=== PATIENT | female | born 2000 | race Caucasian/White ===

== ENCOUNTER 2024-11-29 18:59 | Outpatient (CLI) | payer BC, SELFPAY ==
[2024-11-29] VITALS (25 sets, daily range): BP systolic 107–117; BP diastolic 59–66; PULSE 95–120; O2SAT 97–100
--- OUTSIDE RECORDS SUMMARY | 2024-11-29 19:11 | XMS_ITS | Referral Summary ---
Author Organization [facility] Address [address] [place] [address] Care Team Providers Care Supervisor Payroll Name Role Phone Unavailable Primary Care Provider Unavailabl e Source Comments [facility],non-owned Affiliates and Associated Physician Practices is amultiple site organization consisting of ambulatory clinics and hospital sitesin [place], [place] and [place]. This disclosure is being madepursuant to the Care Everywhere program and may not contain all information available regarding this patient. Last updated 18.[facility] Encounters Date Type Department Care Team Description 11/18/2024 Telephone [facility] [address] [place] [id number] Georgette Jimenez RN Results (Called patient to let her know her antibody screen was Negative and she does not need further FU with [facility] office. Advised patient to call back if she has any questions. ) 11/13/2024 8:40 AM THERMAL TECHNICIAN - 11/13/2024 11:59 PM THERMAL TECHNICIAN Hospital Encounter [facility] [address] [place] [address] Iker Maher MD ENVIRONMENTAL SERVICES ASSISTANT Discharge Disposition: Home or Self Care 10/16/2024 7:56 AM THERMAL TECHNICIAN - 10/16/2024 11:59 PM THERMAL TECHNICIAN Hospital Encounter [facility] [address] [place] [address] [phone] Colton Rasmussen MD Discharge Disposition: Home or Self Care 10/14/2024 Orders Only [facility] - ENVIRONMENTAL SERVICES ASSISTANT [address] [place] [phone] Isadora Majano MD 09/23/2024 Orders Only [facility] [address] [place] [phone] Georgette Jimenez RN 09/18/2024 8:30 AM THERMAL TECHNICIAN - 09/18/2024 11:59 PM THERMAL TECHNICIAN Hospital Encounter [facility] [address] [place] [address] [phone] Colton Rasmussen MD Discharge Disposition: Home or Self Care 09/18/2024 8:25 AM THERMAL TECHNICIAN - 09/18/2024 8:29 AM THERMAL TECHNICIAN Hospital Encounter [facility] [address] [place] [id number] Colton Rasmussen MD Discharge Disposition: Home or Self Care from Last 3 Months Allergies No known active allergies Medications * Be aware that medications may not be up to date on this document. Alwaysverify current medications with the patient. 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 Encounter for anatomic survey 10/16/2024 Estimated Date of Delivery Comme nts Yes 03/01/2025 Based on last me nstrual period of 05/25/2024 Social History Tobacco Use Types Packs/Day Years Used Date Smoking Tobacco: Never Smokeless Tobacco: Never Tobacco Cessation:Counseling Given: Not Answered Alcohol Use Standard Drinks/Week Comments Not Currently 0 (1 standard drink = 0.6 oz pur e alcohol) Estimated Date of Delivery Comme nts Yes 03/01/2025 Based on last me nstrual period of 05/25/2024 Sex and Gender Information Value Date Recorded Sex Assigned at Female 10/09/2024 11:06 AM THERMAL TECHNICIAN Gender Identity Female 10/09/2024 11:06 AM THERMAL TECHNICIAN Sexual Orientation Not on file Last Filed Vital Signs Vital Sign Reading Time Taken Comments Blood Pressure 108/55 11/13/2024 8:53 AM THERMAL TECHNICIAN Pulse 71 11/13/2024 8:53 AM THERMAL TECHNICIAN Temperature - - Respiratory Rate - - Oxygen Saturation - - Inhaled Oxygen Concentration - - Weight 93.6 kg (206 lb 6.4 oz) 11/13/2024 8:53 A M THERMAL TECHNICIAN Height 160 cm (5' 3 ) 09/18/2024 9:22 AM THERMAL TECHNICIAN Body Mass Index 36.56 09/18/2024 9:22 AM THERMAL TECHNICIAN Plan of Treatment Not on file Procedures Procedure Name Priority Date/Time Associated Diagnosis Comments ANTIBODY SCREEN 11/13/2024 10:31 AM THERMAL TECHNICIAN SONOGRAM - COMPLETE Routine 11/13/2024 9 :20 AM THERMAL TECHNICIAN 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 Encounter for routine ultrasound (HCC) 15 weeks gestation of (HCC) SONOGRAM - COMPLETE Routine 10/16/2024 7 :58 AM THERMAL TECHNICIAN 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 Encounter for routine ultrasound (HCC) 15 weeks gestation of (HCC) ANTIBODY IDENTIFICATION 10/14/2024 8:37 AM THERMAL TECHNICIAN ANTIBODY SCREEN 10/14/2024 8:37 AM THERMAL TECHNICIAN ANTIBODY IDENTIFICATION 09/18/2024 10:58 AM THERMAL TECHNICIAN ANTIBODY SCREEN 09/18/2024 10:58 AM THERMAL TECHNICIAN SONOGRAM - COMPLETE Routine 09/18/2024 8 :49 AM THERMAL TECHNICIAN 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 Antibody Screen NO ANTIBODIES DETECTED [facility] Comment: Historical records indicate the patient's plasma previously contained antibodies to the D antigen. The antibody is not detectable in the current sample. Clinical correlation is suggested. Reference range No antibodies detected This assay is a screening test for the detection of red blood cell antibodies. The test is not to be used for pretransfusion screening or for the medical management of an alloimmunized . Test Performed at: [facility] [address] [place] [address] BARB MARTINEZ MD 11/13/2024 10:3 1 AM THERMAL TECHNICIAN 11/13/2024 10:31 AM THERMAL TECHNICIAN Colton Rasmussen MD LAB - BLOOD BANK ORD ERABLES [facility] [address] [place] [address] * SONOGRAM - COMPLETE (11/13/2024 9:20 AM THERMAL TECHNICIAN) Only the most recent of3 resultswithin the time period is included. Linked Results Indication ======== Ultrasound data compared to LMP of 05/25/2024 per tracking paty: 07/05/2024 at 5w6d by LMP, GS c/w 5w2d, no CRL by TV scan 07/29/2024 at 9w2d by LMP, CRL c/w 8w3d Referred for blood type O-negative with questionable alloimmunization 07/05/2024 had RhIg after vaginal bleeding at [facility] 07/15/2024 anti-D too weak to titer 07/29/2024 anti-D too weak to titer 09/18/2024 anti-D < 1 10/14/2024 anti-D <1 Class II obesity History ====== OB History 2. Para 0 [id number] 1. missed 2022 Lab Tests Test Date Result NIPT Low risk, Female Maternal Assessment Physical Exam Height 160 cm, 5 ft 3 in. Weight 93 kg, 206 lb. Initial weight 90 kg, 199 lb. BMI 36.49 kg/m . Initial BMI 35.25 kg/m . Weight gain 3 kg, 7 lb Method ====== Transabdominal ultrasound. View: Limited by position and maternal body habitus ========= Mchugh . Number of fetuses: 1 Dating ====== Date Details Gest. age CHET LMP 05/25/2024 24 w + 4 d 03/01/2025 Previous U/S 07/29/2024 CRL 19.0 mm 23 w + 5 d 03/07/2025 U/S 11/13/2024 based upon AC, BPD, Femur, HC 24 w + 1 d 03/04/2025 Assigned dating based on the LMP, selected on 09/18/2024 24 w + 4 d 03/01/2025 General Evaluation Cardiac activity present. FHR 149 bpm. Presentation: cephalic Placenta: Placental site: anterior Amniotic fluid: Amount of AF: normal Biometry BPD 59.3 mm 24w 2d 30% Hadlock HC 214.1 mm 23w 3d 5% Hadlock AC 190.6 mm 23w 6d 19% Hadlock Femur 45.4 mm 25w 0d 51% Hadlock Humerus 38.0 mm 23w 3d 10% Lucero HC / AC 1.12 -/- Hadlock Weight Calculation: EFW 676 g 27% Hadlock EFW (lb,oz) 1 lb 8 oz EFW by Hadlock ([id number]) appropriate Growth Overview Exam date GA BPD (mm) HC (mm) AC (mm) FL (mm) HL (mm) EFW (g) 09/18/2024 16w 4d 34.3 49% 129.7 40% 104.5 44% 21.7 42% 21.1 49% 158 35% 10/16/2024 20w 4d 45.5 18% 166.9 4% 159.3 60% 30.5 10% 29.7 20% 338 26% 11/13/2024 24w 4d 59.3 30% 214.1 5% 190.6 19% 45.4 51% 38 10% 676 27% Anatomy The following structures appear normal: Heart / Thorax 4-chamber view. RVOT view. 9-yjjzeq-tnbihea view. Bicaval view. Great vessels. Abdomen Stomach. Kidneys. Bladder. Genitals. Spine Cervical spine. Thoracic spine. Lumbar spine. Sacral spine. The following structures were documented previously: Head / Neck Cranium. Lateral ventricles. Choroid plexus. Midline falx. Cavum septi pellucidi. Cerebellum. Cisterna magna. Face Lips. Profile. Nose. Heart / Thorax LVOT view. 3-vessel view. Situs. Aortic arch view. Ductal arch view. Right lung. Left lung. Diaphragm. Abdomen Cord insertion. Extremities / Skeleton Arms. Hands. Legs. Feet. sex: female. Impression ========= Single, live, intrauterine at 24w 4d size is appropriate Amniotic fluid volume: normal No major malformations were seen within the limitations of ultrasound - anatomic survey is now complete Follow-up ======== MCA ultrasounds to be initiated as needed based on titer Initiate weekly 8-point BPP at 36 weeks due to class II obesity in Coding ====== Procedures 01267: US Preg Uterus Follow Up [employer] PACS Anatomical Region Laterality Modality Other 11/13/2024 9:20 AM THERMAL TECHNICIAN Roz Triplett DO [facility] ORDERABLES * (ABNORMAL) ANTIBODY IDENTIFICATION (10/14/2024 8:37 AM THERMAL TECHNICIAN) Only the most recent of2 resultswithin the time period is included. Antibody Identification ANTI-D(A) NEGATIVE [facility] Titer SEE BELOW [facility] Comment:<1:1 [facility] Comment: This test is intended to identify IgG antibodies implicated in hemolytic diseases of the . It does not routinely detect IgM antibodies and thus is not suitable for screening for irregular antibodies prior to transfusion. This assay is a screening test for the detection of red blood cell antibodies. The test is not to be used for pretransfusion screening or for the medical management of an alloimmunized . Test Performed at: [facility] [address] [place] [place] [address] BARB MARTINEZ MD 10/14/2024 8:37 AM THERMAL TECHNICIAN 10/14/2024 8:38 AM THERMAL TECHNICIAN Isadora Majano MD LAB - BLOOD BANK ORD ERABLES [facility] [address] [place] [address] from Last 3 Months Shahnaz Lucas Personal/Family Self 2000
--- OUTSIDE RECORDS SUMMARY | 2024-11-29 19:11 | XMS_ITS | Patient Health Summary ---
Author Organization [facility] [employer] Address [address] [place] [address] Care Team Providers Care Electrical Maintenance Mechanic Name Role Phone Unavailable Primary Care Provider Unavailabl e Note from [facility],non-owned Affiliates and Associated Physician Practices is amultiple site organization consisting of ambulatory clinics and hospital sitesin [place], [place], [place] and [place]. This disclosure is being madepursuant to the Care Everywhere program and may not contain all information available regarding this patient. Last updated 18.[facility] [employer] Allergies No known active allergies Medications * Be aware that medications may not be up to date on this document. Alwaysverify current medications with the patient. 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 Encounter for anatomic survey 10/16/2024 Social History Tobacco Use Types Packs/Day Years [...] Sex Assigned at Female 10/09/2024 11:06 AM WIRING INSPECTOR Gender Identity Female 10/09/2024 11:06 AM WIRING INSPECTOR Sexual Orientation Not on file Last Filed Vital Signs Vital Sign Reading Time Taken Comments Blood Pressure 108/55 11/13/2024 8:53 AM WIRING INSPECTOR Pulse 71 11/13/2024 8:53 AM WIRING INSPECTOR Temperature - - Respiratory Rate - - Oxygen Saturation - - Inhaled Oxygen Concentration - - Weight 93.6 kg (206 lb 6.4 oz) 11/13/2024 8:53 A M WIRING INSPECTOR Height 160 cm (5' 3 ) 09/18/2024 9:22 AM WIRING INSPECTOR Body Mass Index 36.56 09/18/2024 9:22 AM WIRING INSPECTOR Procedures * ANTIBODY SCREEN(Performed 11/13/2024) * SONOGRAM - COMPLETE(Performed 11/13/2024) Performed for 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, Encounter for routine ultrasound ([facility]), 15 weeks gestation of ([facility]) * SONOGRAM - COMPLETE(Performed 10/16/2024) Performed for 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, Encounter for routine ultrasound ([facility]), 15 weeks gestation of ([facility]) * ANTIBODY IDENTIFICATION(Performed 10/14/2024) * ANTIBODY SCREEN(Performed 10/14/2024) * ANTIBODY IDENTIFICATION(Performed 09/18/2024) * ANTIBODY SCREEN(Performed 09/18/2024) * SONOGRAM - COMPLETE(Performed 09/18/2024) Performed for 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 [facility] Antibody Screen NO ANTIBODIES DETECTED [facility] Comment: [...] of an alloimmunized . Test Performed at: [employer] [address] [place] [address] BARB MARTINEZ MD 11/13/2024 10:3 1 AM WIRING INSPECTOR 11/13/2024 10:31 AM WIRING INSPECTOR Colton Rasmussen MD LAB - BLOOD BANK ORD ERABLES [facility] [address] [place] [address] * SONOGRAM - COMPLETE (11/13/2024 9:20 AM WIRING INSPECTOR) Only the most recent of3 resultswithin the time period is included. Linked Results Indication ======== Ultrasound data compared to LMP of 05/25/2024 per tracking paty: 07/05/2024 at 5w6d by LMP, GS c/w 5w2d, no CRL by TV scan 07/29/2024 at 9w2d by LMP, CRL c/w 8w3d Referred for blood type O-negative with questionable alloimmunization 07/05/2024 had RhIg after vaginal bleeding at [facility] 07/15/2024 anti-D too weak to titer 07/29/2024 anti-D too weak to titer 09/18/2024 anti-D < 1 10/14/2024 anti-D <1 Class II obesity History ====== OB History 2. Para 0 [id number] 1. missed 2022 Lab Tests Test Date [...] 1 lb 8 oz EFW by Hadlock ([id number]) appropriate Growth Overview Exam date GA BPD [...] Heart / Thorax 4-chamber view. RVOT view. 4-miydqy-bfyphas view. Bicaval view. Great vessels. Abdomen Stomach. [...] class II obesity in Coding ====== Procedures [id number]: US Preg Uterus Follow Up [employer] PACS Anatomical Region Laterality Modality Other 11/13/2024 9:20 AM WIRING INSPECTOR Roz Triplett DO [facility] ORDERABLES * (ABNORMAL) ANTIBODY IDENTIFICATION (10/14/2024 8:37 AM WIRING INSPECTOR) Only the most recent of2 resultswithin the time period is included. Antibody Identification ANTI-D(A) NEGATIVE [facility] Titer SEE BELOW [facility] Comment:<1:1 [employer] [facility] Comment: This test is intended to [...] of an alloimmunized . Test Performed at: [facility] [address] [place] [address] BARB MARTINEZ MD 10/14/2024 8:37 AM WIRING INSPECTOR 10/14/2024 8:38 AM WIRING INSPECTOR Isadora Majano MD LAB - BLOOD BANK ORD ERABLES [facility] [address] [place] [address]
--- OUTSIDE RECORDS SUMMARY | 2024-11-29 19:11 | XMS_ITS | Clinical Summary ---
Author Organization [facility] Address [address] [place] [address] Care Team Providers Care Automotive Alignment Specialist Name Role Phone Unavailable Primary Care Provider Unavailabl e Source Comments [facility],non-owned Affiliates and Associated Physician Practices is amultiple site organization consisting of ambulatory clinics and hospital sitesin [place], [place], [place] and [place]. This disclosure is being madepursuant to the Care Everywhere program and may not contain all information available regarding this patient. Last updated 18.[facility] [employer] Allergies No known active allergies Medications * [...] on last me nstrual period of 05/25/2024 Encounters Date Type Department Care Team Description 11/18/2024 Telephone [facility]'s Health [facility] [address] [place] [phone] Georgette Jimenez, RN Results (Called patient to let her know her antibody screen was Negative and she does not need further FU with [facility] office. Advised patient to call back if she has any questions. ) 11/13/2024 8:40 AM STAFF VETERINARIAN - 11/13/2024 11:59 PM STAFF VETERINARIAN Hospital Encounter [facility] Care [address] [place] [phone] Iker Maher MD STORE PERSON Discharge Disposition: Home or Self Care 10/16/2024 7:56 AM STAFF VETERINARIAN - 10/16/2024 11:59 PM STAFF VETERINARIAN Hospital Encounter Critical access hospital [facility] [address] [place] [phone] Colton Rasmussen MD Discharge Disposition: Home or Self Care 10/14/2024 Orders Only [facility] - STORE PERSON [address] [facility] [facility] [address] [place] [phone] Isadora Majano MD 09/23/2024 Orders Only Critical access hospital [facility] [address] [place] [phone] Georgette Jimenez RN 09/18/2024 8:30 AM STAFF VETERINARIAN - 09/18/2024 11:59 PM STAFF VETERINARIAN Hospital Encounter Critical access [facility] [address] [place] [phone] Colton Rasmussen MD Discharge Disposition: Home or Self Care 09/18/2024 8:25 AM STAFF VETERINARIAN - 09/18/2024 8:29 AM STAFF VETERINARIAN Hospital Encounter Critical access [facility] [address] [place] [phone] Colton Rasmussen MD Discharge Disposition: Home or Self Care from Last 3 Months Family History Medical History Relation Name Comments Anxiety Disorder Brother Depression Brother Hypertension Maternal Grandfather Cancer - Breast Maternal Grandmother Anxiety Disorder Mother Depression Mother Seizures Mother Anxiety Disorder Sister Depression Sister Relation Name Status Comments Brother Maternal Grandfather Maternal Grandmother Mother Sister Social History Tobacco Use Types Packs/Day Years [...] Sex Assigned at Female 10/09/2024 11:06 AM STAFF VETERINARIAN Gender Identity Female 10/09/2024 11:06 AM STAFF VETERINARIAN Sexual Orientation Not on file Last Filed Vital Signs Vital Sign Reading Time Taken Comments Blood Pressure 108/55 11/13/2024 8:53 AM STAFF VETERINARIAN Pulse 71 11/13/2024 8:53 AM STAFF VETERINARIAN Temperature - - Respiratory Rate - - Oxygen Saturation - - Inhaled Oxygen Concentration - - Weight 93.6 kg (206 lb 6.4 oz) 11/13/2024 8:53 A M STAFF VETERINARIAN Height 160 cm (5' 3 ) 09/18/2024 9:22 AM STAFF VETERINARIAN Body Mass Index 36.56 09/18/2024 9:22 AM STAFF VETERINARIAN Plan of Treatment Health Maintenance Due Date Last Done Comments PAP SMEAR 2000 HIV SCREENING 2013 HPV VACCINE (1 - 3-dose series) 2013 CHLAMYDIA/GONORRHEA SCREENING 2014 HEPATITIS C SCREENING 12/09/2016 DTAP/TDAP/TD VACCINES (1 - Tdap) 2017 HEPATITIS B VACCINE (1 of 3 - 19+ 3-dose series) 2017 COVID-19 VACCINE ( - season) 2024 DEPRESSION SCREENING 10/02/2024 OB-ONE HOUR GLUCOSE 11/23/2024 OB-TDAP CURRENT 11/30/2024 OB-RHOGAM INJECTION 12/07/2024 ZOSTER VACCINE (1 of 2) 2048 INFLUENZA VACCINE Completed 08/06/2024, , 11/09/2022, Additional history exists HIB VACCINE Aged Out No longer eligi ble based on patient's age to complete this topic MENINGOCOCCAL (Group B) VACCINE Aged Out No longer eligible based on patient's age to complete this topic MENINGOCOCCAL VACCINE Aged Out No lizzy leobardo eligible based on patient's age to complete this topic PNEUMOCOCCAL VACCINE Aged Out No long er eligible based on patient's age to complete this topic Respiratory Syncytial Virus (RSV) Vaccine Pt: or over 60 yrs (No Doses Required) Completed Procedures Procedure Name Priority Date/Time Associated Diagnosis Comments ANTIBODY SCREEN 11/13/2024 10:31 AM STAFF VETERINARIAN SONOGRAM - COMPLETE Routine 11/13/2024 9 :20 AM STAFF VETERINARIAN 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 Encounter for routine ultrasound (HCC) 15 weeks gestation of (HCC) SONOGRAM - COMPLETE Routine 10/16/2024 7 :58 AM STAFF VETERINARIAN 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 Encounter for routine ultrasound (HCC) 15 weeks gestation of (HCC) ANTIBODY IDENTIFICATION 10/14/2024 8:37 AM STAFF VETERINARIAN ANTIBODY SCREEN 10/14/2024 8:37 AM STAFF VETERINARIAN ANTIBODY IDENTIFICATION 09/18/2024 10:58 AM STAFF VETERINARIAN ANTIBODY SCREEN 09/18/2024 10:58 AM STAFF VETERINARIAN SONOGRAM - COMPLETE Routine 09/18/2024 8 :49 AM STAFF VETERINARIAN 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 [facility] Antibody Screen NO ANTIBODIES DETECTED [facility] Comment: [...] of an alloimmunized . Test Performed at: [employer] [address] [place] [address] BARB MARTINEZ MD 11/13/2024 10:3 1 AM STAFF VETERINARIAN 11/13/2024 10:31 AM STAFF VETERINARIAN Colton Rasmussen MD LAB - BLOOD BANK ORD ERABLES [facility] [address] [place] [address] * SONOGRAM - COMPLETE (11/13/2024 9:20 AM STAFF VETERINARIAN) Only the most recent of3 resultswithin the time period is included. Linked Results Indication ======== Ultrasound data compared to LMP of 05/25/2024 per tracking paty: 07/05/2024 at 5w6d by LMP, GS c/w 5w2d, no CRL by TV scan 07/29/2024 at 9w2d by LMP, CRL c/w 8w3d Referred for blood type O-negative with questionable alloimmunization 07/05/2024 had RhIg after vaginal bleeding at [facility] 07/15/2024 anti-D too weak to titer 07/29/2024 anti-D too weak to titer 09/18/2024 anti-D < 1 10/14/2024 anti-D <1 Class II obesity History ====== OB History 2. Para 0 [id number] 1. missed 2022 Lab Tests Test Date [...] 1 lb 8 oz EFW by Hadlock ([id number]) appropriate Growth Overview Exam date [place] BPD [...] Heart / Thorax 4-chamber view. RVOT view. 5-ihdyvb-ahdolxh view. Bicaval view. Great vessels. Abdomen Stomach. [...] class II obesity in Coding ====== Procedures [id number]: US Preg Uterus Follow Up [employer] PACS Anatomical Region Laterality Modality Other 11/13/2024 9:20 AM STAFF VETERINARIAN Roz Triplett DO [facility] ORDERABLES * (ABNORMAL) ANTIBODY IDENTIFICATION (10/14/2024 8:37 AM STAFF VETERINARIAN) Only the most recent of2 resultswithin the [...] of an alloimmunized . Test Performed at: [employer] [facility] [address] [place] [address] BARB MARTINEZ MD 10/14/2024 8:37 AM STAFF VETERINARIAN 10/14/2024 8:38 AM STAFF VETERINARIAN Isadora Majano MD LAB - BLOOD BANK ORD ERABLES [facility] [address] [place] [address] from Last 3 Months DayShahnaz Personal/Family Self 2000
--- OUTSIDE RECORDS SUMMARY | 2024-11-29 19:11 | XMS_ITS | Data Portability ---
Author Organization [place] [facility] [employer], Main Office Address [address] [place] [id number] Care Team Providers Care Kayak Maker Name Role Phone MURTAZA WEINER Primary Care Provider Assessment No assessment recorded. Plan of Treatment Reminders Order Date Submit Date Provider Last Modified By Organization Details Last Modified Time Details Appointments Any 15 2024 08:45A M Murtaza samano MD Not available Not available Not available Lab vitamin D, 25-hydrox y, total, serum [address] Out[facility], [address] [place], [address], 08/06/2024 10:03:45 lipid panel w/ direct LDL, serum [address] Out[facility] Lab, [address] [place], [address], 08/06/2024 10:03:44 CMP, serum or plasma [address] Out[facility] Lab, [address] [place], [address], 08/06/2024 10:03:44 CBC w/ auto diff 2023 [facility] Out[facility] Lab, [address] [place], [address], 11/28/2024 04:05:51 TSH + free T4, serum [address] Out[facility] Lab, [address] [place], [address], 08/06/2024 10:03:45 vitamin B12 + folate, serum or blood 2023 024 [facility], [address] [place], [address], 11/28/2024 04:05:56 vitamin D, 25-hydrox y, total, serum [address] [facility] Outpatient Lab, [address] [place], [address], 05/17/2024 14:30:25 lipid panel w/ direct LDL, serum [address] Lab, [address] [place], [address], 09/03/2024 08:08:20 CMP, serum or plasma [address] Out[facility] Lab, [address] [place], [address], 09/03/2024 08:08:21 CBC w/ auto diff 2023 024 [facility], [address] [place], [address], 03/01/2024 01:37:20 TSH + free T4, serum [address] Outpatient Lab, [address] [place], [address], 09/03/2024 08:08:21 Referral obstetric burt and gynecolog ist referral 2023 024 [email or web address] Shanti Valerio MD, [address], [address], [place], [address], 10/01/2024 13:34:14 Procedures None recorded. Surgeries None recorded. Imaging None recorded. Medication Orders None recorded. Patient TargetsNo targets recorded. Patient InstructionsNo instructions recorded. Reason for Referral [employer] [facility] Referral for Gynecologic examination Referring Physician: Murtaza Weiner, Internal Medicine, Encounter Date: 02/29/2024 Results Created Date Observation Date Name Description Value Unit Range Abnormal Flag Note LastModifiedBy Organization Detail LastModifiedTime 02/29/20 24 02/29/2024 CBC/C OMPLE TE BLD COUNT W/DIF F white blood cells 6.2 x10'3 /uL 4.2-10 .8 Not Available [facility] (Lab) [address] [place], [address], 02/29/2024 13:08:28 02/29/20 24 02/29/2024 CBC/C OMPLE TE BLD COUNT W/DIF F red blood cells 4.48 x10'6 /uL 3.80-5 .20 Not Available [facility] (Lab) [address] [place], [address], 02/29/2024 13:08:28 02/29/20 24 02/29/2024 CBC/C OMPLE TE BLD COUNT W/DIF F hemoglobin 12.6 g/dL 12.0-1 5.6 Not Available [facility] (Lab) [address] [place], [address], 02/29/2024 13:08:28 02/29/20 24 02/29/2024 CBC/C OMPLE TE BLD COUNT W/DIF F hematocrit 38.8 % 35.7-4 5.7 Not Available [facility] (Lab) [address] [place], [address], 02/29/2024 13:08:28 02/29/20 24 02/29/2024 CBC/C OMPLE TE BLD COUNT W/DIF F mean red cell volume 86.6 fL 82.0-9 9.0 Not Available [facility] (Lab) [address] [place], [address], 02/29/2024 13:08:28 02/29/20 24 02/29/2024 CBC/C OMPLE TE BLD COUNT W/DIF F mean red cell hemoglobin 28.1 pg 27.0-3 3.0 Not Available [facility] (Lab) [address] [place], [address], 02/29/2024 13:08:28 02/29/20 24 02/29/2024 CBC/C OMPLE TE BLD COUNT W/DIF F mean RBC HGB concentratio n 32.5 g/dL 31.0-3 6.0 Not Available [facility] (Lab) [address] [place], [address], 02/29/2024 13:08:28 02/29/20 24 02/29/2024 CBC/C OMPLE TE BLD COUNT W/DIF F red cell distribution width 14.3 % 11.8-1 5.5 Not Available [facility] (Lab) [address] [place], [address], 02/29/2024 13:08:28 02/29/20 24 02/29/2024 CBC/C OMPLE TE BLD COUNT W/DIF F platelets 297 x10'3 /uL 150-40 0 Not Available [facility] (Lab) [address] [place], [address], 02/29/2024 13:08:28 02/29/20 24 02/29/2024 CBC/C OMPLE TE BLD COUNT W/DIF F mean platelet volume 9.7 fL 9.0-12 .4 Not Available [facility] (Lab) [address] [place], [address], 02/29/2024 13:08:28 02/29/20 24 02/29/2024 CBC/C OMPLE TE BLD COUNT W/DIF F neutrophils 64.9 % 39.0-7 2.0 Not Available [facility] (Lab) [address] [place], [address], 02/29/2024 13:08:28 02/29/20 24 02/29/2024 CBC/C OMPLE TE BLD COUNT W/DIF F lymphocytes 29.1 % 16.0-4 7.0 Not Available [facility] (Lab) [address] [place], [address], 02/29/2024 13:08:28 02/29/20 24 02/29/2024 CBC/C OMPLE TE BLD COUNT W/DIF F monocytes 4.7 % 5.0-12 .0 low Not Available [facility] (Lab) [address] [place], [address], 02/29/2024 13:08:28 02/29/20 24 02/29/2024 CBC/C OMPLE TE BLD COUNT W/DIF F eosinophils 0.5 % 1.0-7. 0 low Not Available [facility] (Lab) [address] [place], [address], 02/29/2024 13:08:28 02/29/20 24 02/29/2024 CBC/C OMPLE TE BLD COUNT W/DIF F basophils 0.5 % 0.0-2. 0 Not Available [facility] (Lab) [address] [place], [address], 02/29/2024 13:08:28 02/29/20 24 02/29/2024 CBC/C OMPLE TE BLD COUNT W/DIF F immature granulocytes 0.3 % 0.00-0 .50 Not Available [facility] (Lab) [address] [place], [address], 02/29/2024 13:08:28 02/29/20 24 02/29/2024 CBC/C OMPLE TE BLD COUNT W/DIF F neutrophils, absolute count 4.05 x10'3 /uL 1.5-8. 0 Not Available [facility] (Lab) [address] [place], [address], 02/29/2024 13:08:28 02/29/20 24 02/29/2024 CBC/C OMPLE TE BLD COUNT W/DIF F lymphocytes, absolute count 1.81 x10'3 /uL 1.07-3 .43 Not Available [facility] (Lab) [address] [place], [address], 02/29/2024 13:08:28 02/29/20 24 02/29/2024 CBC/C OMPLE TE BLD COUNT W/DIF F monocytes, absolute count 0.29 x10'3 /uL 0.29-0 .99 Not Available [facility] (Lab) [address] [place], [address], 02/29/2024 13:08:28 02/29/20 24 02/29/2024 CBC/C OMPLE TE BLD COUNT W/DIF F eosinophils, absolute count 0.03 x10'3 /uL 0.02-0 .53 Not Available [facility] (Lab) [address] [place], [address], 02/29/2024 13:08:28 02/29/20 24 02/29/2024 CBC/C OMPLE TE BLD COUNT W/DIF F basophils, absolute count 0.03 x10'3 /uL 0.01-0 .08 Not Available [facility] (Lab) [address] [place], [address], 02/29/2024 13:08:28 02/29/20 24 02/29/2024 CBC/C OMPLE TE BLD COUNT W/DIF F immature granulocytes ,absolute 0.02 x10'3 /uL 0.00-0 .05 Not Available [facility] (Lab) [address] [place], [address], 02/29/2024 13:08:28 02/29/20 24 02/29/2024 CBC/C OMPLE TE BLD COUNT W/DIF F nucleated red blood cells 0.0 % -0 Not Available [facility] (Lab) [address] [place], [address], 02/29/2024 13:08:28 02/29/20 24 02/29/2024 CBC/C OMPLE TE BLD COUNT W/DIF F NRBC# 0.00 x10'3 /uL Not Available [facility] (Lab) [address] [place], [address], 02/29/2024 13:08:28 02/29/20 24 02/29/2024 LIPID PANEL cholesterol 165 mg/dL 140-19 9 [facility] NSUS RECOM MENDA TION FOR ROGELIO STERO L: ADULT CHILD LOW RISK: <200 <170 BORDE RLINE : <200- 239 ----- HIGH RISK: >240 >200 Not Available [facility] (Lab) [address] [place], [address], 02/29/2024 13:17:56 02/29/20 24 02/29/2024 LIPID PANEL triglyceride s 75 mg/dL 0-150 [facility] W[facility] NSUS REPOR T RECOM MENDA TION FOR TRIGL YCERI CECE: ADULT CHILD LOW RISK: <150 ----- BODER LINE: 150-1 99 ----- HIGH RISK: >200 ----- Not Available [facility] (Lab) [address] [place], [address], 02/29/2024 13:17:56 02/29/20 24 02/29/2024 LIPID PANEL HDL cholesterol 50 mg/dL 40- Not Available [facility] (Lab) [address] [place], [address], 02/29/2024 13:17:56 02/29/20 24 02/29/2024 LIPID PANEL LDL cholesterol, calculated 100 mg/dL 0-130 [facility] W[facility] NSUS REPOR T RECOM MENDA TIONS FOR LDL: ADULT CHILD LOW RISK <130 <110 (OPTI MAL LDL) <100 ----- CESIA RLINE : 130-1 59 ----- HIGH RISK: >160 >130 A TRIGL YCERI DE RESUL T >400 INVAL IDATE S THE CALCU LATIO N FOR LDL FRACT IONAT ION - THE LDL RESUL T WILL NOT BE REPOR BECKY. Not Available [facility] (Lab) [address] [place], [address], 02/29/2024 13:17:56 02/29/20 24 02/29/2024 COMPR EHENS JEAN PAUL METAB OLIC PANEL sodium 139 mmol/ L 137-14 5 Not Available [facility] (Lab) [address] [place], [address], 02/29/2024 13:18:01 02/29/20 24 02/29/2024 COMPR EHENS JEAN PAUL METAB OLIC PANEL potassium 4.2 mmol/ L 3.5-5. 1 Not Available [facility] (Lab) [address] [place], [address], 02/29/2024 13:18:01 02/29/20 24 02/29/2024 COMPR EHENS JEAN PAUL METAB OLIC PANEL chloride 108 mmol/ L 98-107 high Not Available [facility] (Lab) [address] [place], [address], 02/29/2024 13:18:01 02/29/20 24 02/29/2024 COMPR EHENS JEAN PAUL METAB OLIC PANEL carbon dioxide 25 mmol/ L 22-30 Not Available [facility] (Lab) [address] [place], [address], 02/29/2024 13:18:01 02/29/20 24 02/29/2024 COMPR EHENS JEAN PAUL METAB OLIC PANEL anion gap 10.2 mmol/ L 14-22 low Not Available [facility] (Lab) [address] [place], [address], 02/29/2024 13:18:02/29/20 24 02/29/2024 COMPR EHENS JEAN PAUL METAB OLIC PANEL glucose 95 mg/dL 70-99 Not Available [facility] (Lab) [address] [place], [address], 02/29/2024 13:18:01 02/29/20 24 02/29/2024 COMPR EHENS JEAN PAUL METAB OLIC PANEL BUN 12 mg/dL 8-19 Not Available [facility] (Lab) [address] [place], [address], 02/29/2024 13:18:01 02/29/20 24 02/29/2024 COMPR EHENS JEAN PAUL METAB OLIC PANEL creatinine 0.68 mg/dL 0.66-1 .25 Not Available [facility] (Lab) [address] [place], [address], 02/29/2024 13:18:01 02/29/20 24 02/29/2024 COMPR EHENS JEAN PAUL METAB OLIC PANEL GFR >60 Refer ence Range : [place] ge GFR Healt hy Adult : >60 mL/mi n/1.7 3 m2 Chron ic Kidne y Disea se: 15-60 mL/mi n/1.7 3 m2 Kidne y Failu re: <15/m L/min /1.73 m2 www.n iddk. nih.g ov The MDRD study equat ion has not been valid ated in child aldo <18 years of age; pregn ant women ; the elder ly >85 years of age; or in some racia l or ethni c subgr oups, such as [facility] nics. Outsi de the valid ated jas eters , estim ated GFR is less accur ate, requi ring clini phyllis judgm ent on a case- by-ca se basis . Clini phyllis inter preta tion for other races and ages must be made by the clini isabel. The MDRD study equat ion has not been valid ated for the evalu ation of serum creat inine relat ed to nutri deepti l statu s or medic ation usage . For perso ns <18 years of age, a pedia tric GFR calcu lator is avail able on the [facility] websi te: https ://annie w.jaya burroughs.o rg/pr ofess ional s/kdo qi/gf r_cal culat or Not Available [facility] (Lab) [address] [place], [address], 02/29/2024 13:18:01 02/29/20 24 02/29/2024 COMPR EHENS JEAN PAUL METAB OLIC PANEL alkaline phosphatase 78 U/L 38-126 Not Available [facility] (Lab) [address] [place], [address], 02/29/2024 13:18:01 02/29/20 24 02/29/2024 COMPR EHENS JEAN PAUL METAB OLIC PANEL alanine aminotransfe rase 18 U/L 0-35 Not Available [facility] (Lab) [address] [place], [address], 02/29/2024 13:18:01 02/29/20 24 02/29/2024 COMPR EHENS JEAN PAUL METAB OLIC PANEL aspartate aminotransfe rase 26 U/L 15-37 Not Available [facility] (Lab) [address] [place], [address], 02/29/2024 13:18:01 02/29/20 24 02/29/2024 COMPR EHENS JEAN PAUL METAB OLIC PANEL bilirubin, total 0.60 mg/dL 0.20-1 .30 Not Available [facility] (Lab) [address] [place], [address], 02/29/2024 13:18:01 02/29/20 24 02/29/2024 COMPR EHENS JEAN PAUL METAB OLIC PANEL calcium 9.5 mg/dL 8.4-10 .2 Not Available [facility] (Lab) [address] [place], [address], 02/29/2024 13:18:01 02/29/20 24 02/29/2024 COMPR EHENS JEAN PAUL METAB OLIC PANEL total protein 7.3 g/dL 6.3-8. 2 Not Available [facility] (Lab) [address] [place], [address], 02/29/2024 13:18:01 02/29/20 24 02/29/2024 COMPR EHENS JEAN PAUL METAB OLIC PANEL albumin 4.5 g/dL 3.4-5. 0 Not Available [facility] (Lab) [address] [place], [address], 02/29/2024 13:18:01 02/29/20 24 02/29/2024 COMPR EHENS JEAN PAUL METAB OLIC PANEL globulin 2.8 g/dL 2.6-4. 2 Not Available [facility] (Lab) [address] [place], [address], 02/29/2024 13:18:01 02/29/20 24 02/29/2024 COMPR EHENS JEAN PAUL METAB OLIC PANEL A/G ratio 1.6 ratio 1.0-2. 0 Not Available [facility] (Lab) [address] [place], [address], 02/29/2024 13:18:01 02/29/20 24 02/29/2024 VITAM IN D 25-HY DROXY [id number] 21.0 NG/mL 30-100 low Vitam in D Statu s: Defic ient: <20 ng/mL Insuf ficie nt: 20-29 ng/mL Suffi cient : 30-10 0 ng/mL Not Available [facility] (Lab) [address] [place], [address], 02/29/2024 13:33:08 02/29/20 24 02/29/2024 T4 FREE free T4 1.07 NG/dL 0.78-2 .19 Not Available [facility] (Lab) [address] [place], [address], 02/29/2024 13:37:02 02/29/20 24 02/29/2024 TSH thyroid-stim ulating hormone 1.800 uIU/m L 0.465- 4.680 Not Available [facility] ([facility]) [address] [facility], [place], [address], 02/29/2024 13:52:24 07/30/20 24 07/29/2024 imagi ng/di agnos tic resul t No observ ation record ed. [address] [facility] [address], [place], [address], 07/30/2024 09:02:35 Result Notes None recorded. Problems Name Problem SNOMED Code Status Onset Date Resolution Date Notes Provider Name and Address Organization Details Recorded Time Vitamin D deficiency 74690217 Active 024 Murtaza samano MD [address] [facility], [address] [address], [place], [address], [employer] 12:13:40 Serum vitamin B12 below reference range 696560997 Active 024 Murtaza samano MD [address] [facility], [address] [address], [place], [address], [employer] 09:54:10 Problem Notes None recorded. Procedures Surgical History None recorded. Imaging Results Imaging Date Name Status LastModified by Organiz ation Details LastModified Time 07/29/2024 imaging/diag nostic result completed [address] [facility] [address], [place], [address], 07/30/2024 09:02:35 Procedure Notes None recorded. Medical Equipment None Reported. Allergies No known drug allergies Medications Name Sig Start Date Stop Date Status Note LastModified by Organization Details LastModified Time Vitamin B-6 25 mg tablet TAKE 1 TABLET BY MOUTH TWICE DAILY 08/06 completed Not Available Not Available Not Available ibuprofen 800 mg tablet TAKE 1 TABLET BY MOUTH EVERY 8 HOURS DURING MENSES 08/06 completed Not Available Not Available Not Available amoxicillin 875 mg tablet TAKE 1 TABLET BY MOUTH TWICE DAILY FOR 7 DAYS 08/06 completed Not Available Not Available Not Available metoclopram kayla 5 mg tablet TAKE 1 TABLET BY MOUTH EVERY 6 HOURS NEEDED FOR NAUSEA OR VOMITING 08/06 completed Not Available Not Available Not Available 28 mg iron-800 mcg tablet TAKE 1 TABLET BY MOUTH EVERY DAY active Not Available Not Available No t Available Vitals Date Recorded Body height Body mass index (BMI) Body weight Body temperature Heart rate Oxygen saturation Oxygen saturation in Arterial blood by Pulse oximetry Systolic blood pressure Diastolic blood pressure Provider Name and Address Organization Details Last Updated DateTime 4 162.56 cm 36.2 kg/m2 73107.9 9 g 98 [degF] 84 /min 99 % 99 % 108 mm[Hg] 70 mm[Hg] Birgit Patel MA [employer] [facility] [employer] 11:49:11 Date Recorded Body height Body mass index (BMI) Body weight Body temperature Heart rate Systolic blood pressure Diastolic blood pressure Provider Name and Address Organization Details Last Updated DateTime 162.56 cm 35.4 kg/m2 02189.0 3 g 97.4 [degF] 90 /min 110 mm[Hg] 60 mm[Hg] ADAL Henry [employer] [facility] [employer] 09:36:06 Social History Question Answer Notes LastModified by Organizat ion Details LastModified Time Tobacco Smoking Status Never Smoker Birgit Patel MA [facility] [employer] [facility] [employer] 02/29/2024 11:51:12 What Is Your Level Of Alcohol Consumption? Occasional Information not available 02/29/2024 What Is Your Level Of Caffeine Consumption? Occasional Information not available 02/29/2024 In The 14 Days Before Symptom Onset, Have You Had Close Contact With A Laboratory-confir med COVID-19 While That Case Was Ill? No Information not available 02/29/2024 In The 14 Days Before Symptom Onset, Have You Had Close Contact With A Person Who Is Under Investigation For COVID-19 While That Person Was Ill? No Information not available 02/29/2024 Are You Currently Employed? Yes Information not available 02/29/2024 What Type Of Diet Are You Following? REGULAR Information not available 02/29/2024 What Is Your Occupation? [employer] Information not available 02/29/2024 Have There Been Any Changes To Your Family Or Social Situation? No Information no t available 02/29/2024 Do You Use Insect Repellent Routinely? Yes Information not available 02/29/2024 Where Do You Live? SingleLevelHouse Information not available 02/29/2024 What Was The Date Of Your Most Recent Tobacco Screening? 08/06/2024 Information not available 08/06/2024 How Many Children Do You Have? -1 Information not available 02/29/2024 Do You Have Any Pets? Yes Information not available 02/29/2024 What Is Your Relationship Status? Information not available 02/29/2024 Do You Use Your Seat Belt Or Car Seat Routinely? Yes Information not available 02/29/2024 Do You Have Smoke And Carbon Monoxide Detectors In Your Home? Yes Information not available 02/29/2024 Are You Passively Exposed To Smoke? No Information no t available 02/29/2024 Are There Any Smokers In Your House? No Information not available 02/29/2024 Do You Feel Stressed (tense, Restless, Nervous, Or Anxious, Or Unable To Sleep At Night)? [id number] Information not available 02/29/2024 Do You Use Any Illicit Or Recreational Drugs? No Information not available 02/29/2024 Do You Use Sunscreen Routinely? Yes Information not available 02/29/2024 Has Tobacco Cessation Counseling Been Provided? No N/a Information not available 08/06/2024 Have You Recently Traveled Abroad? No Information not available 02/29/2024 Do You Have Any Dietary Restrictions? No Information not available 02/29/2024 Do You Or Have You Ever Used Any Other Forms Of Tobacco Or Nicotine? No Information not available 02/29/2024 Sex: Unknown Functional Status Question Answer Note LastModified by Organizat ion Details LastModified Time What is your exercise level? Occasional Information not available 02/29/2024 Mental Status None recorded. Family History Relationship Description Onset Age of this Age Resolved Age Notes LastModified by Organization Details LastModified Time Father No current problems or disability [email or web address] Not available 02/28 11:50:08 Mother Bipolar disorder [email or web address] Not available 2023 09:33:34 Mother Depressive disorder [email or web address] Not available 2023 09:33:41 Mother Anxiety disorder [email or web address] Not available 2023 09:33:50 Medical History No medical history recorded. Gynecological History Statement/Question Response How many live births 0 Date of Last Pap Current Control Method None Age at Menarche 7 Date of LMP 02/25/2024 Obstetrics History GPAL:G 0 P 0 0 0 0 Type Value Multiple Births 0 Full Term 0 Induced 0 Spontaneous 0 Premature 0 Living 0 Ectopics 0 Total 0 Immunizations Vaccine Type Date Status Note Provider Nam e and Address Organization Details Recorded Time Influenza, split virus, trivalent, PF 08/06/2024 completed Murtaza Weiner MD [address] [facility], [place], [address], [facility] [employer] [facility] 08/06/2024 18:08:51 Past Encounters Encounter ID Performer Location Encounter Start Date Encounter Closed Date Diagnosis/Indication Diagnosis SNOMED-CT Code Diagnosis ICD10 Code Diagnosis Note [id number] Murtaza copeland MD [facility] Internal Med [address] [facility] [address] [place] [address] 02/29/2024 11:39:13 02/29/2024 12:36:31 Screening - NAD 317036288 Z13.9 PAP: Get an apt with OB Get yearly flu shot, get Tdap, get COVID 19 vaccine RTC in 6 months, do labs, ER if worse, she and her did verbalize her understand ing of the above Cholesterol screening 27 9359660 Z13.220 Vitamin D deficiency 347 [address] E55.9 Gynecologi c examination 87554083 Z01.668 [id number] Murtaza copeland MD [facility] Internal Med [address] [place] [address] 08/06/2024 09:21:57 08/06/2024 10:05:57 Screening - NAD 756103453 Z13.9 PAP: Is , now see Dr Torres at [facility] Get yearly flu shot, 08/06/2024 Get Tdap, get COVID 19 vaccine RTC in 4 months, do labs, ER if worse, she and her did verbalize her understand ing of the above Cholesterol screening 27 1938178 Z13.220 Vitamin D deficiency 347 77642 E55.9 Serum sveta min B12 below reference range 793913158 R79.89 Administra tion of influenza vaccine 87353019 Z23 Health Concerns Section Related Observation LastModified by Organization Detai ls LastModified Time None Recorded Concern Status LastModified by Organization Details LastModified Time None Recorded Advance Directives Directive None Recorded Payers Encounter Date Sequence Insurance Name Policy Number Policy Ashley Covered Member ID Ashley Member ID Guarantor Name 02/29/2024 1 [place] [id number] Shahnaz Day [id number] Shahnaz Day 08/06/2024 1 [place] [id number] Notes Date Note Type Note Provider Name and Address Organization Details Recorded Time 02/29/2024 text/html OV 02/29/2024:Here to establish care Present Hx: NoneHere to establish care, and get labs, does well Murtaza Weiner MD [address], [address], [place], [address], [employer] 03/11/2024 09:04:38 08/06/2024 text/html OV 02/29/2024:Here to establish care Present Hx: NoneHere to establish care, and get labs, does well OV 08/06/2024: Here for her f/u apt, she is doing well today, she is now and has seen her OB, she is here with her Murtaza Weiner MD [address], [place], [address], [employer] 08/06/2024 18:12:59 OBGyn Episode No OBEpisode recorded.
--- OUTSIDE RECORDS SUMMARY | 2024-11-29 19:11 | XMS_ITS | Data Portability ---
Author Organization [facility] PATY Tariq Kay Address [address] [place] [address] Care Team Providers Care Senior Landscape Architect Name Role Phone ELA PATEL Kiln Transfer Operator Assessment No assessment recorded. Plan of Treatment Reminders Order Date Submit Date Provider Last Modified By Organization Details Last Modified Time Details Appointments OB 15 2024 08:30A M Unassigned Not available Not available Not available Lab urinaly sis, dipstic k 2024 025 [email or web address] In-Office Order, Internal Use Only DO Not Attach Compendium DO Not Attach Compendium, Do Not Delete/merge, [id number] 10/28/2024 11:07:59 Referral None recorde d. Procedures None recorde d. Surgeries None recorde d. Imaging US, obstetr ic, materna l evaluat ion + anatomy 2024 025 CARL [facility], [facility] [address], [place], [address], 11/13/2024 13:54:06 Medication Orders None recorde d. Patient TargetsNo targets recorded. Patient Instructions Encounter Date Encounter Id Patient Instructions Last Modified By Organization Details Last Modified Time 10/28/2024 [id number] Attending Physician Attestation S: 23 yo at 22w2d by LMP c/w 1st tri US. 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 Headaches are getting worse but not associated with edema, chest pain, dyspnea. Was taking APAP 325 mg BID. Nausea improving. OB ROS o/w neg. O: BP 118/68. FH 22 cm, FHR 152. Udip neg. A/P: Routine OB care - UTD. Needs repeat US in 4 weeks; order placed. Headaches - Recommended APAP up to 1000 mg q6h. Continue maintaining hydration, rest. Nausea - On metoclopramide. {{I did not personally see or examine the patient with the resident. I was physically present to provide indirect supervision through entire encounter.* I personally saw the patient with the resident.}} Plan discussed with resident as documented in my brief note above. Bri Schmid MD [email or web address] Not available 10/28/2024 12:56:41 Reason for Referral None Reported. Results Created Date Observation Date Name Description Value Unit Range Abnormal Flag Note LastModifiedBy Organization Detail LastModifiedTime 10/14/1910/16/2024 Blood group antib odies ident ified in Serum or Plasm a antibody identificati on ANTI-D text: negati ve abnormal Antib whitney Ident ifica tion ANTI- D (A) NEGAT JEAN PAUL [facility] Not Available Not Available 11/13/2024 13:55:39 10/14/19 25 10/16/2024 Blood group antib odies ident ified in Serum or Plasm a titer SEE BELOW Titer SEE BELOW [facility] Not Available Not Available 11/13/2024 13:55:39 10/14/19 25 10/16/2024 Blood group antib odies ident ified in Serum or Plasm a quest [facility] Not Available Not Available 11/13/2024 13:55:39 10/14/19 25 10/16/2024 Blood group antib odies ident ified in Serum or Plasm a interpretati on and review of laboratory results Abnorm al Not Available Not Available 13:55:39 10/14/19 25 10/16/2024 Blood group antib whitney scree n [Pres ence] in Serum or Plasm a antibody screen POSITI VE abnormal Antib whitney Scree n POSIT JEAN PAUL (A) [facility] Not Available Not Available 11/13/2024 13:55:39 10/14/19 25 10/16/2024 Blood group antib whitney scree n [Pres ence] in Serum or Plasm a interpretati on and review of laboratory results Abnorm al Not Available Not Available 13:55:39 10/28/19 25 10/29/2024 ANTIB WHITNEY SCREE N antibody screen NEGATI VE negati ve Not Available [facility] ([facility]) [address] [place], [address], 10/29/2024 06:15:36 10/28/19 25 10/28/2024 urina lysis , dipst ick Leukocytes Negati ve Not Available In-Office Order Internal Use Only DO Not Attach Compendium DO Not Attach Compendium, Do Not Delete/merge, 10/28/2024 10:40:10 10/28/19 25 10/28/2024 urina lysis , dipst ick Nitrite negati ve Not Available In-Office Order Internal Use Only DO Not Attach Compendium DO Not Attach Compendium, Do Not Delete/merge, 10/28/2024 10:40:10 10/28/19 25 10/28/2024 urina lysis , dipst ick Urobilinogen .2 Not Available In-Of fice Order Internal Use Only DO Not Attach Compendium DO Not Attach Compendium, Do Not Delete/merge, 10/28/2024 10:40:10 10/28/19 25 10/28/2024 urina lysis , dipst ick Protein Negati ve Not Available In-Office Order Internal Use Only DO Not Attach Compendium DO Not Attach Compendium, Do Not Delete/merge, 10/28/2024 10:40:10 10/28/1910/28/2024 urina lysis , dipst ick pH 6.0 Not Available In-Office Order Internal Use Only DO Not Attach Compendium DO Not Attach Compendium, Do Not Delete/merge, 10/28/2024 10:40:10 10/28/19 25 10/28/2024 urina lysis , dipst ick Blood Negati ve Not Available In-Office Order Internal Use Only DO Not Attach Compendium DO Not Attach Compendium, Do Not Delete/merge, 10/28/2024 10:40:10 10/28/19 25 10/28/2024 urina lysis , dipst ick Specific [place] 1.025 Not Available In-Off ice Order Internal Use Only DO Not Attach Compendium DO Not Attach Compendium, Do Not Delete/merge, 10/28/2024 10:40:10 10/28/1910/28/2024 urina lysis , dipst ick Ketone Negati ve Not Available In-Office Order Internal Use Only DO Not Attach Compendium DO Not Attach Compendium, Do Not Delete/merge, 10/28/2024 10:40:10 10/28/19 25 10/28/2024 urina lysis , dipst ick Bilirubin Negati ve Not Available In-Office Order Internal Use Only DO Not Attach Compendium DO Not Attach Compendium, Do Not Delete/merge, 10/28/2024 10:40:10 10/28/1910/28/2024 urina lysis , dipst ick Glucose Negati ve Not Available In-Office Order Internal Use Only DO Not Attach Compendium DO Not Attach Compendium, Do Not Delete/merge, 10/28/2024 10:40:10 11/13/1911/14/2024 Blood group antib whitney scree n [Pres ence] in Serum or Plasm a antibody screen NO ANTIBO DIES DETECT ED Antib whitney Scree n NO ANTIB ODIES DETEC BECKY [facility] Not Available Not Available 11/15/2024 10:15:05 11/25/19 25 11/25/2024 urina lysis , dipst ick Leukocytes Negati ve Not Available In-Office Order Internal Use Only DO Not Attach Compendium DO Not Attach Compendium, Do Not Delete/merge, 11/25/2024 10:11:17 11/25/19 25 11/25/2024 urina lysis , dipst ick Nitrite negati ve Not Available In-Office Order Internal Use Only DO Not Attach Compendium DO Not Attach Compendium, Do Not Delete/merge, 11/25/2024 10:11:17 11/25/19 25 11/25/2024 urina lysis , dipst ick Urobilinogen .2 Not Available In-Of fice Order Internal Use Only DO Not Attach Compendium DO Not Attach Compendium, Do Not Delete/merge, 11/25/2024 10:11:17 11/25/19 25 11/25/2024 urina lysis , dipst ick Protein Negati ve Not Available In-Office Order Internal Use Only DO Not Attach Compendium DO Not Attach Compendium, Do Not Delete/merge, 11/25/2024 10:11:17 11/25/19 25 11/25/2024 urina lysis , dipst ick pH 7.5 Not Available In-Office Order Internal Use Only DO Not Attach Compendium DO Not Attach Compendium, Do Not Delete/merge, 11/25/2024 10:11:17 11/25/19 25 11/25/2024 urina lysis , dipst ick Blood Negati ve Not Available In-Office Order Internal Use Only DO Not Attach Compendium DO Not Attach Compendium, Do Not Delete/merge, 11/25/2024 10:11:17 11/25/19 25 11/25/2024 urina lysis , dipst ick Specific [place] 1.020 Not Available In-Off ice Order Internal Use Only DO Not Attach Compendium DO Not Attach Compendium, Do Not Delete/merge, 11/25/2024 10:11:17 11/25/19 25 11/25/2024 urina lysis , dipst ick Ketone Negati ve Not Available In-Office Order Internal Use Only DO Not Attach Compendium DO Not Attach Compendium, Do Not Delete/merge, 11/25/2024 10:11:17 11/25/19 25 11/25/2024 urina lysis , dipst ick Bilirubin Negati ve Not Available In-Office Order Internal Use Only DO Not Attach Compendium DO Not Attach Compendium, Do Not Delete/merge, 11/25/2024 10:11:17 11/25/19 25 11/25/2024 urina lysis , dipst ick Glucose Negati ve Not Available In-Office Order Internal Use Only DO Not Attach Compendium DO Not Attach Compendium, Do Not Delete/merge, 11/25/2024 10:11:17 10/16/19 25 10/16/2024 US, obste tric, mater nal evalu ation + anato my No observ ation record ed. CARL [facility] [address], [place], [address], 10/22/2024 14:04:17 10/16/19 25 US, obste tric, mater nal evalu ation + anato my No observ ation record ed. rossana [facility] [address], [place], [address], 10/22/2024 10:33:19 11/13/19 25 11/13/2024 US, obste tric, mater nal evalu ation + anato my No observ ation record ed. CARL [facility] [address], [place], [address], 11/15/2024 12:13:00 11/18/19 25 US, obste tric, mater nal evalu ation + anato my No observ ation record ed. rossana [facility] [address], [place], [address], 11/18/2024 12:48:54 Result Notes None recorded. Problems Name Problem SNOMED Code Status Onset Date Resolution Date Notes Provider Name and Address Organization Details Recorded Time 92717851 Active 2023 Haleigh Torres MA null, [place] - [facility] 4 09:15:05 Maternal obesity complicat ing , childbirt h and the puerperiu m, antepartu m 874398582297 Active 2023 GRAYSON NOVA DO Attn: Kittyin g,[address] [place], [address], [place] - [facility] 4 09:36:19 Nausea and vomiting in Active 2023 Lola/herrera rosales DO Attn: Accountin g,[address] [place], [address], [facility] - [facility] 4 16:49:03 Blood group O Rh(D) negative 549060531 Active 2023 co-managi ng with MFM, recheck antibody titers Cheri Valverde MD Attn: Accountin g,[address] , [place], [address], [place] - [facility] 4 16:42:38 Anti-D isoimmuni zation affecting 666224545 Active 2023 co-managi ng with MFM, recheck antibody titers Cheri Valverde MD Attn: Accountin g,[address] , [place], [address], [place] [facility] 4 16:43:06 Anti-D isoimmuni zation affecting 375481563 Active 2023 co-managi ng with MFM, recheck antibody titers Cheri Valverde MD Attn: Accountin g,[address] [facility], [place], [address], [place] [facility] 4 16:43:06 Dysuria 54074854 Active 2023 Check UA and Nuswab Cheri Valverde MD Attn: Accountin g,[address] [facility], [place], [address], [place] [facility] 4 16:42:48 Routine care Active 2023 Cheri Valverde MD Attn: Accountin g,[address] [facility], [place], [address], [place] [facility] 4 12:53:21 Routine care Active 2023 Cheri Valverde MD Attn: Accountin g,[address] , [place], [address], [place] [facility] 4 12:53:21 Headache 55054365 Active 2023 Tylenol, trial Benadryl Cheri Valverde MD Attn: Accountin g,[address] [facility], [place], [address], [place] [facility] 4 16:43:04 Headache 13915006 Active 2023 Tylenol, trial Benadryl Cheri Valverde MD Attn: Ameya denis,[address] [facility], [place], [address], [facility] - [facility] 16:43:04 Problem Notes None recorded. Procedures Surgical History Date Name Laterality Status Provider Name and Address Organization Details Recorded Time 4 OB Ultrasound - 1st Trimester completed GRAYSON NOVA DO Attn: Accounting,[address] [facility], [place], [address], [facility] - SI 07/29/2024 20:38:38 3 Date of Last Pap Smear completed IESHA RAMIREZ Attn: Accounting,[address] [facility], [place], [address], [facility] - [facility] 03/22/2023 14:38:34 8 Control Implant Insertion completed Yadira Segura MA [facility] 03/08/2018 15:00:11 Imaging Results Imaging Date Name Status LastModified by Organiz ation Details LastModified Time 10/16/2024 US, obstetric, maternal evaluation + anatomy completed [facility] [place], [address], 10/22/2024 14:04:17 10/16/2024 US, obstetric, maternal evaluation + anatomy completed [place] [address], [place], [address], 10/22/2024 10:33:19 11/13/2024 US, obstetric, maternal evaluation + anatomy completed [place] [address], [place], [address], 11/15/2024 12:13:00 11/18/2024 US, obstetric, maternal evaluation + anatomy [facility] [place] [address], [place], [address], 11/18/2024 12:48:54 Procedure Notes None recorded. Medical Equipment None Reported. Allergies No known drug allergies Medications Name Sig Start Date Stop Date Status Note LastModified by Organization Details LastModified Time multivitami n tablet Take 1 tablet every day by oral route. 03/22 completed Not Available Not Available Not Available amoxicillin 500 mg capsule TAKE 1 CAPSULE BY MOUTH TWICE DAILY 03/22 completed Not Available Not Available Not Available Vitamin B-6 25 mg tablet TAKE 1 TABLET BY MOUTH TWICE DAILY 10/22 completed Not Available Not Available Not Available Tab-A-Ponce tablet 03/22 completed Not Available Not Available Not Available azithromyci n 250 mg tablet TAKE 2 TABLETS BY MOUTH FOR 1 DAY THEN TAKE 1 TABLET BY MOUTH DAILY FOR 4 DAYS 03/22 completed Not Available Not Available Not Available ibuprofen 800 mg tablet TAKE 1 TABLET BY MOUTH EVERY 8 HOURS DURING MENSES 07/04 completed Not Available Not Available Not Available benzonatate 200 mg capsule TAKE 1 CAPSULE BY MOUTH THREE TIMES DAILY FOR COUGH 03/22 completed Not Available Not Available Not Available hydrocodone 5 mg-acetamin ophen 325 mg tablet TAKE 1 TABLET BY MOUTH EVERY 6 HOURS NEEDED FOR PAIN 05/06 completed Not Available Not Available Not Available amoxicillin 875 mg tablet TAKE 1 TABLET BY MOUTH TWICE DAILY FOR 7 DAYS 08/12 completed Not Available Not Available Not Available metoclopram kayla 5 mg tablet TAKE 1 TABLET BY MOUTH EVERY 6 TO 8 HOURS FOR 14 DAYS NEEDED FOR NAUSEA OR VOMITING active Not Available Not Available No t Available cephalexin 500 mg tablet TAKE 1 TABLET BY MOUTH EVERY 12 HOURS FOR 5 DAYS FOR UTI 09/23 completed Not Available Not Available Not Available methylpredn isolone 4 mg tablets in a dose pack FOLLOW PACKAGE DIRECTION S 03/22 completed Not Available Not Available Not Available Unisom (doxylamine ) 25 mg tablet Take 1 tablet every day by oral route at bedtime for 30 days. 2023 active Not Available Not Available Not Avai lable amoxicillin 875 mg-potassiu m clavulanate 125 mg tablet TAKE 1 TABLET BY MOUTH TWICE DAILY 05/06 completed Not Available Not Available Not Available Adult Low Dose Aspirin 81 mg tablet,shaun yed release Take 1 tablet every day by oral route for 30 days, for preeclamp esau preventio n. 2023 active Not Available Not Available Not Avai lable Zyrtec 10 mg capsule Take 1 capsule every day by oral route. active Not Available Not Available No t Available butalbital- acetaminoph en-caffeine 50 mg-300 mg-40 mg capsule Take 1 capsule every 8 hours by oral route as needed for 30 days, for Headache in . 2024 active Not Available Not Available Not Avai lable Nexplanon 68 mg subdermal implant Inject 1 implant by subcutane ous route. 03/22 completed Not Available Not Available Not Available 28 mg iron-800 mcg tablet TAKE 1 TABLET BY MOUTH EVERY DAY active Not Available Not Available No t Available calcium 600 mg (as carbonate)- vitamin D3 20 mcg (800 unit) tablet Take 1 tablet twice a day by oral route. 03/22 completed Not Available Not Available Not Available ID NOW COVID-19 Test Kit TEST DIRECTED TODAY 03/22 completed Not Available Not Available Not Available BinaxNOW COVID-19 Ag Self Test kit TEST DIRECTED TODAY 03/22 completed Not Available Not Available Not Available Vitals Date Recorded Body height Body mass index (BMI) Body weight Heart rate Oxygen saturation Oxygen saturation in Arterial blood by Pulse oximetry Systolic blood pressure Diastolic blood pressure Provider Name and Address Organization Details Last Updated DateTime 160.02 cm 36.4 kg/m2 16384.8 9 g 103 /min 98 % 98 % 118 mm[Hg] 68 mm[Hg] Dennise Roldan MA [facility] 5 10:33:51 Date Recorded Body height Body mass index (BMI) Body weight Systolic blood pressure Diastolic blood pressure Provider Name and Address Organization Details Last Updated DateTime 11/25/2024 160.02 cm 36.8 kg/m2 17349.21 g 118 mm[Hg] 66 mm[Hg] Haleigh Torres MA [facility] 5 10:08:59 Social History Question Answer Notes LastModified by Organizat ion Details LastModified Time Tobacco Smoking Status Never Smoker Sierra Bynum MA null, [facility] 05/04/2016 10:21:40 Do You Have An Advance Directive? No Information not available 02/13/2018 What Is Your Level Of Alcohol Consumption? Occasional 07/15/24 Before , [email or web address] Information not available 07/15/2024 Animal Exposure? Yes 2 Dogs 2 Cats [email or web address] Information not available 05/04/2016 Do You Wear A Helmet When Biking? Yes Information not available 05/04/2016 Is Blood Transfusion Acceptable In An Emergency? Yes Information not available 02/13/2018 Are You Or Have You Been Involved With Bullying? No Information not available 05/04/2016 What Is Your Level Of Caffeine Consumption? None [email or web address] Information not available 05/04/2016 How Much Tobacco Do You Chew? None Information not available 02/13/2018 What Type Of Pin Game Machine Inspector Do You Use? None [email or web address] Information not available 05/04/2016 In The 14 Days Before Symptom Onset, Have You Had Close Contact With A Laboratory-confir med COVID-19 While That Case Was Ill? No Information not available 05/06/2024 In The 14 Days Before Symptom Onset, Have You Had Close Contact With A Person Who Is Under Investigation For COVID-19 While That Person Was Ill? No Information not available 05/06/2024 Have You Been To An Area Known To Be High Risk For COVID-19? No Information not available 05/06/2024 Are You Currently Employed? Yes Information not available 02/13/2018 What Type Of Diet Are You Following? REGULAR [email or web address] Information not available 05/04/2016 Which Illicit Or Recreational Drugs Have You Used? 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 No Information no t available 05/04/2016 What Is The Fluoride Status Of Your Home? Fluoridated [email or web address] Information not available 05/04/2016 Are There Any Guns Present In Your Home? No [email or web address] Information not available 05/04/2016 What Is Your Home Situation? Other Information not available 07/15/2024 Do You Use Insect Repellent Routinely? Yes [email or web address] Information not available 05/04/2016 Live Alone Or With Others? With Others Information not available 02/13/2018 Car Seat Type Or Seat Belt? Seat Belt Information not available 05/04/2016 Parent Involvement? Both Parents Involved Information not available 05/04/2016 Riding In Car Front Seat? Yes [email or web address] Information not available 05/04/2016 What Was The Date Of Your Most Recent Tobacco Screening? 10/28/2024 Information not available 10/28/2024 How Many Children Do You Have? 0 Information not available 02/13/2018 Performs Monthly Self-breast Exam? Yes Information no t available 02/13/2018 Pool Exposure Yes [email or web address] Information not available 05/04/2016 Do You Use Protection During Sex? No Information not available 02/13/2018 What Is Your Relationship Status? Domestic Partner Information not available 07/15/2024 What Is The Name Of Your School? [employer] [email or web address] Information not available 05/04/2016 Seat Belts Used Routinely Yes Information not available 02/13/2018 Are You Sexually Active? Yes Information not available 02/13/2018 Do You Have Any Siblings? 2 [email or web address] Information not available 05/04/2016 Do You Have Smoke And Carbon Monoxide Detectors In Your Home? Yes [email or web address] Information not available 05/04/2016 Are You Passively Exposed To Smoke? No [email or web address] Information no t available 05/04/2016 How Much Tobacco Do You Smoke? No [email or web address] Information not available 05/04/2016 General Stress Level Medium Information not available 02/13/2018 Do You Use Any Illicit Or Recreational Drugs? No Information not available 07/15/2024 Do You Use Sunscreen Routinely? Yes [email or web address] Information not available 05/04/2016 Has Tobacco Cessation Counseling Been Provided? Yes Information not available 07/15/2024 On What Date Was Tobacco Cessation Counseling Provided? 10/28/2024 Information not available 10/28/2024 Year In School 12 [email or web address] Informatio n not available 05/04/2016 Do You Or Have You Ever Used Any Other Forms Of Tobacco Or Nicotine? No Information not available 07/15/2024 Sex: Female Functional Status Question Answer Note LastModified by Organizat ion Details LastModified Time What is your exercise level? Occasional [email or web address] Information not available 05/04/2016 Mental Status None recorded. Family History Relationship Description Onset Age of this Age Resolved Age Notes LastModified by Organization Details LastModified Time Mother Anemia [email or web address] Not available 10:58:02 Mother Anxiety disorder trtd by PCP [email or web address] Not available 05/04/2016 10:58:02 Father Anxiety disorder trtd by PCP [email or web address] Not available 05/04/2016 10:58:02 Father Hypercholest erolemia [email or web address] Not available 2015 10:58:02 Brother Asthma [email or web address] Not available 0 05/04/2016 10:58:02 Maternal Grandmother Kidney disease [email or web address] Not available 2015 10:58:02 Medical History Condition Response Other N High Blood Pressure N Blood Diseases N Breast Cancer N Lung Disease N Depression N Blood Clots N Developmental or Behavioral Disorders N Breast Problem N Premature N Anesthesia Complications N Headaches/Migraines Y Anxiety Disorder N Muscle, Joint, or Bone Problems N Vision or Eye Problems N Head Injury/Concussion N Polyps N Infertility N Acid Reflux (GERD) N Cancer N ADHD N Endometriosis N Bladder or Kidney Problems N High Cholesterol N Liver Disease N Headaches N Ear or Hearing Problems N Thyroid Problems N Kidney or Bladder Problems N GI Problems N Acne N Skin Problems N Eating Disorder N Anemia N Constipation N Ovarian Cancer N Diabetes N Bedwetting N Blood Transfusions N Seizures/Epilepsy N Heart Problems/Murmur N Abuse/Domestic Violence N Asthma N Allergies N Hepatitis N Heart Disease N Pre-Eclampsia N Osteoporosis N Chicken Pox N Autism Spectrum Disorder (ASD) N Gynecological History Statement/Question Response Date of LMP 05/25/2024 Sexually Active? Y On BCP's at Conception? N Menses Monthly N STIs/STDs N HPV Vaccine Y Date of Last Pap Smear 03/22/2023 Sexual Problems? N Current Control Method Age at Menarche 9 LMP Definite Obstetrics History GPAL:G 2 P 0 0 1 0 Type Value Multiple Births 0 Full Term 0 Induced 0 Spontaneous 1 Premature 0 Living 0 Ectopics 0 Total 2 Immunizations Vaccine Type Date Status Note Provider Nam e and Address Organization Details Recorded Time meningococcal MCV4P 6 completed Not Available [facility] 10/19/2019 02:29:57 Influenza, live, trivalent, intranasal 2 completed LAVELL SANCHEZ MD Attn: [address] [place], [place], [address] [place] [address], [place] [facility] 05/06/2024 12:32:00 pneumococcal conjugate PCV 7 3 completed LAVELL SANCHEZ MD Attn: [address] [place], [place], [address] [place] [address], [place] [facility] 05/06/2024 12:32:00 influenza, unspecified formulation 9 completed LAVELL SANCHEZ MD Attn: [address]ing[address] [place], [place], [address] [place] [address], [place] [facility] 05/06/2024 12:32:00 influenza, unspecified formulation 3 completed LAVELL SANCHEZ MD Attn: [address] [place], [place], [address] [place] [address], [place] [facility] 05/06/2024 12:32:00 influenza, unspecified formulation 7 completed LAVELL SANCHEZ MD Attn: [address]ing[address] [place], [place], [address] [place] [address], [place] [facility] 05/06/2024 12:32:00 Novel [id number], all formulations 9 completed LAVELL SANCHEZ MD Attn: [address] [place], [address] [place] [address], [place] [facility] 05/06/2024 12:32:00 influenza, split (incl. purified surface antigen) 7 completed LAVELL SANCHEZ MD Attn: [address] [place], [place], [address] [place] [address], [place] [facility] 05/06/2024 12:32:00 influenza, split (incl. purified surface antigen) 0 completed LAVELL SANCHEZ MD Attn: Accounting[address] [facility] [place], [address], [place] [facility] 05/06/2024 12:32:00 influenza, split (incl. purified surface antigen) 3 completed LAVELL SANCHEZ MD Attn: Accounting,204 1 [facility], [place], [address], [facility] 05/06/2024 12:32:00 Hep B, adult 3 completed LAVELL SANCHEZ MD Attn: Accounting,204 1 [facility], [place], [address], [place] [facility] 05/06/2024 12:32:00 Hep A, pediatric, unspecified formulation 8 completed LAVELL SANCHEZ MD Attn: Accounting,204 1 [facility], [place], [address], [facility] 05/06/2024 12:32:00 Hep A, pediatric, unspecified formulation 0 completed LAVELL SANCHEZ MD Attn: Accounting,204 1 [facility], [place], [address], [facility] - [facility] 05/06/2024 12:32:00 DTaP 3 completed LAVELL SANCHEZ MD Attn: Accounting,204 1 [facility], [place], [address], [place] [facility] 05/06/2024 12:32:00 Influenza, live, quadrivalent, intranasal 4 completed LAVELL SANCHEZ MD Attn: Accounting,204 1 [facility], [place], [address], [place] [facility] 05/06/2024 12:32:00 Influenza, split virus, quadrivalent, PF 0 completed LAVELL SANCHEZ MD Attn: Accounting,204 1 [facility], [place], [address], [place] [facility] 05/06/2024 12:32:00 Influenza, split virus, quadrivalent, PF 3 completed LAVELL SANCHEZ MD Attn: Accounting,204 1 [facility], [place], [address], [place] [facility] 05/06/2024 12:32:00 Hep B, adult 3 completed LAVELL SANCHEZ MD Attn: Accounting,204 1 [facility], [place], [address], [place] [facility] 06/24/2024 12:09:11 Influenza, MDCK, quadrivalent, PF 3 completed LAVELL SANCHEZ MD Attn: Accounting,204 1 [facility], [place], [address], [place] [facility] 06/24/2024 13:16:42 Influenza, split virus, trivalent, PF 4 completed LAVELL SANCHEZ MD Attn: Accounting,204 1 [facility], [place], [address], [place] [facility] 08/12/2024 10:54:51 Hep B, adolescent or pediatric 9 [place] [facility] 03/14/2016 10:17:35 Hib, unspecified formulation 9 [place] [facility] 03/14/2016 10:17:35 DTaP, unspecified formulation 9 [place] [facility] 03/14/2016 10:17:35 MMR 3 completed LAVELL SANCHEZ MD Attn: Accounting,204 1 [facility], [place], [address], [place] [facility] 05/06/2024 12:32:00 DTaP, unspecified formulation 9 [place] [facility] 03/14/2016 10:17:35 meningococcal MCV4, unspecified formulation 0 [place] [facility] 03/14/2016 10:17:35 DTaP, unspecified formulation 9 [place] [facility] 03/14/2016 10:17:35 MMR 0 [place] [facility] 03/14/2016 10:17:35 Hep B, adolescent or pediatric 0 completed Sierra Bynum [place] [facility] 03/14/2016 10:17:35 Hib, unspecified formulation 9 completed Sierra Byn[place] [facility] 03/14/2016 10:17:35 DTaP, unspecified formulation 0 completed [place] B[place] [facility] 03/14/2016 10:17:35 Hep A, ped/adol, 2 dose 8 completed [place] B[place] [facility] 03/14/2016 10:17:35 Hep B, adolescent or pediatric 9 completed [place] Byn[place] [facility] 03/14/2016 10:17:35 HPV, unspecified formulation 0 completed [place] Byn[place] [facility] 03/14/2016 10:17:35 HPV, unspecified formulation 1 completed [place] Byn[place] [facility] 03/14/2016 10:17:35 pneumococcal conjugate PCV 7 0 completed [place] Byn[place] [facility] 03/14/2016 10:17:35 Hib, unspecified formulation 0 completed [place] Byn[place] [facility] 03/14/2016 10:17:35 Hep A, ped/adol, 2 dose 0 completed [place] B[place] [facility] 03/14/2016 10:17:35 Hib, unspecified formulation 9 completed [place] B[place] [facility] 03/14/2016 10:17:35 varicella 7 completed [place] [facility] 03/14/2016 10:19:19 Tdap 0 completed LAVELL SANCHEZ MD Attn: Accounting,204 1 [facility], [place], [address], [place] [facility] 05/06/2024 12:32:00 IPV 9 completed [place] B[place] [facility] 03/14/2016 10:19:19 IPV 3 completed LAVELL SANCHEZ MD Attn: Accounting,204 1 [facility], [place], [address], [place] [facility] 05/06/2024 12:32:00 IPV 9 completed Sierra Bynum MA null, [place] [facility] 03/14/2016 10:19:19 IPV 0 completed [place] [facility] 03/14/2016 10:19:19 varicella 0 completed Sierra Bynum [place] null, [place] [facility] 03/14/2016 10:19:19 HPV, unspecified formulation 1 completed Sierra Bynum MA null, [place] [facility] 05/04/2016 10:40:42 Past Encounters Encounter ID Performer Location Encounter Start Date Encounter Closed Date Diagnosis/Indication Diagnosis SNOMED-CT Code Diagnosis ICD10 Code Diagnosis Note [id number] [facility]) [address] [place] [address] [id number] 05/04/2016 09:44:53 05/06/2016 10:38:54 Well child 122280782 Z00.247 [id number] LOIS [facility] ([facility]) [address] [place] [address] [phone] 0 12/29/2016 10:22:10 01/03/2017 15:45:41 Headache 26530394 R51 [id number] [facility] ([facility]) [address] [place] [address] [phone] 02/13/2018 14:47:27 02/13/2018 16:07:49 Venereal disease screening 525940174 Z11.3 Exposure t o sexually transmissible disorder 978557043 Z20.2 Z11.3 Family ora nning surveillance 246441479 Z30.09 [id number] [facility] ([facility]IG[facility]) [address] [place] [address] [id number] 03/08/2018 14:37:00 03/08/2018 15:50:57 Insertion of subcutaneous contraceptive 502236945 Z30.017 Family ora nning surveillance 117642021 Z30.09 [id number] IESHA RAMIREZ (CHECK WEIGHER) [address] [place] [address] [phone] 03/22/2023 14:16:53 04/02/2023 17:35:55 Urine test positive 234024895 Z32.01 Pt reports several positive home tests with LMP 01/14/23. Urine test very faintly positive in office today x 2. Pt reports a week of light bleeding earlier this month w/o cramping. Will follow up with quant HCG and progestero ne levels. Screening for malignant neoplasm of cervix 909013201 Z12.4 Pap updated today. [id number] IESHA RAMIREZ (CHECK WEIGHER) [address] [place] [address] [phone] 06/22/2023 11:38:58 06/29/2023 11:26:10 Obesity 765296596 E66.9 per BMI 35.4 Dysmenorrhea 054543958 N 94.6 22 y/o female with worsening dysmenorrh ea x3 months- has cramping/p ain most severe on first day of menses, progressiv rosalinda improves- tried midol, tylenol, and heating pads without relief- as patient is trying to conceive will hold off on hormonal treatment, discussed proper dosing and usage of ibuprofen for pain management - ordered TVUS due to worsening symptoms [id number] MD Jeremiah AHUJA (CHECK WEIGHER) [address] [place] [phone] 0 05/06/2024 10:34:53 05/14/2024 20:13:05 Dysmenorrhea 866241629 N94.4 Discussed proper use of prophylact ic ibuprofen use - was only taking as needed when she had crampsWill rule out infectionU S was normal in Jul 2023 - no fibroids or thick endometriu mConcern for endometrio sisDesires Female hirsutism 3674267 9 L68.0 Will work her up for PCOS and other metabolic derangemen tPatient desires Investigat ions for female infertility 912442104 Z31.41 Discussed weight lossDiscus sed metformin and clomidGive n informatio n about sperm analysisFo llow up in 1 month to discuss results and further steps Obesity 005605461 E66.8 [id number] MD Jeremiah AHUJA (CHECK WEIGHER) [address] [place] [address] [phone] 0 06/24/2024 10:44:41 07/03/2024 10:06:25 Female infertility 4777639 N97.9 Will check TSH today. Other labs previously done. US reassuring against structural issue or PCOS.Discu ssed weight loss. Discussed could trial metformin or clomiphene . Would rather trial clomiphene . Discussed having partner do semen analysis. Will check TSH and discuss what steps she would like to try. Did discuss referring to fertility endocrinol ogist. [id number] MD Jeremiah Hayes (CHECK WEIGHER) [address] [place] [address] [phone] 0 07/15/2024 08:53:49 08/02/2024 11:03:08 test positive 345302128 Z32.01 Routine an tenatal care 987837204 Z34.90 OB plan: 23 y/o ; CHET 02/28/2025 based on LMP presenting at 7w3d for initial OB visit. Problem List:Obesi tyNausea/V omiting Plan:Antic ipatory guidance givenHCG increasing appropriat elyContinu e PNVB6/Unis om rx given for n/vStart ASA at 12 weeks (1st and obesity)In itial OB labs obtainedFo llow up in 2 weeks for dating US Maternal o besity complicating , childbirth and the puerperium, antepartum 4133404476 07 O99.211 Assessment : Obesity based on pre-pregna ncy BMI >30 Pre weight: 206 Pre-pregn theresa BMI: 36.6 Plan: Recommend ed total weight gain of 11-20 lbs. Consider referral to nutrition for dietary counseling , encouraged 30 mins daily physical activity Consider Early 1hr GTT at 16-22 wks Growth ultrasound at 28 and 36 wks if BMI >35 or unable to palpate fundal height BMI 35 or greater monitoring weekly starting at 37 wks Nausea and vomiting in 3747573230 O21.9 No weight lossStart B6/UnisomA void a full stomach with frequent small meals q1-2h. Minimize spicy or fatty foods. Instead eat bland/dry foods. High protein snacks/spring crater ckers in morning before getting out of bed. Can also use Adilene 250 mg q6h [id number] MD Jeremiah Hayes (CHECK WEIGHER) [address] [place] [address] [phone] 07/29/2024 09:25:33 08/02/2024 11:45:29 Blood group O Rh(D) negative 676896521 Z67.41 O negative and antibody positiveAn ti-D positiveHx of 1st trimester miscarriag e in 2022 at 4 weeks and Did receive Rhogam approx 4 weeks agoWill confirm antibody positiveIf still positive, send MFM referral Routine an tenatal care 446582794 Z34.90 OB plan: 23 y/o ; CHET 02/28/2025 based on LMP supported by 9 week US presenting at 9w3d for routine OB visit. Problem List:Obesi tyNausea/V omitingRh negativeAn tibody positive Plan:Antic ipatory guidance givenConti nue PNVB6/Unis om for n/vStart ASA at 12 weeks (1st and obesity)In itial OB labs reviewed and dating US performedW ill repeat antibody testing to confirm positive Anti-D antibodyFo llow up in 2 weeks and obtain HaythapL25 Maternal o besity complicating , childbirth and the puerperium, antepartum 7187708112 07 O99.211 Assessment : Obesity based on pre-pregna ncy BMI >30 Pre weight: 206 Pre-pregn theresa BMI: 36.6 Plan: Recommend ed total weight gain of 11-20 lbs. Consider referral to nutrition for dietary counseling , encouraged 30 mins daily physical activity Consider Early 1hr GTT at 16-22 wks Growth ultrasound at 28 and 36 wks if BMI >35 or unable to palpate fundal height BMI 35 or greater monitoring weekly starting at 37 wks Nausea and vomiting in 5996985798 O21.9 No weight lossContin ue B6/UnisomA void a full stomach with frequent small meals q1-2h. Minimize spicy or fatty foods. Instead eat bland/dry foods. High protein snacks/spring crater ckers in morning before getting out of bed.Can also use Adilene 250 mg q6h [id number] MD Jeremiah AHUJA (CHECK WEIGHER) [address] [place] [address] [phone] 08/12/2024 09:33:25 09/04/2024 13:19:33 Routine care 565486762 Z34.90 OB plan: 23 y/o ; CHET 03/05/2025 based on LMP supported by 9 week US presenting at 10w5d for routine OB visit. Problem List:Obesi tyNausea/V omiting - on reglanRh negativeAn tibody positive (too weak to titer) Plan:Antic ipatory guidance givenConti nue PNVSend Full UA, low threshold for treating for UTIB6/Unis om and Reglan for n/vStart ASA at 12 weeks (1st and obesity)Co nfirmed positive Anti-D antibody - MFM referral for comanageme ntobtain WhrxtpdC77 Blood grou p O Rh(D) negative 143867090 Z67.41 O negative and antibody positiveAn ti-D positiveHx of 1st trimester miscarriag e in 2022 at 4 weeks and Did receive Rhogam approx 4 weeks agoConfirm ed antibody positiveMF M referral sent for comanageme nt Maternal o besity complicating , childbirth and the puerperium, antepartum 5674319488 07 O99.211 Assessment : Obesity based on pre-pregna ncy BMI >30 Pre weight: 206 Pre-pregn theresa BMI: 36.6 Plan: Recommend ed total weight gain of 11-20 lbs. Consider referral to nutrition for dietary counseling , encouraged 30 mins daily physical activity Consider Early 1hr GTT at 16-22 wks Growth ultrasound at 28 and 36 wks if BMI >35 or unable to palpate fundal height BMI 35 or greater monitoring weekly starting at 37 wks Nausea and vomiting in 7878311350 O21.9 No weight lossContin ue B6/UnisomA void a full stomach with frequent small meals q1-2h. Minimize spicy or fatty foods. Instead eat bland/dry foods. High protein snacks/spring crater ckers in morning before getting out of bed.Can also use Adilene 250 mg x3nXenzf rx for reglan in the ER and that has been helping a lotTaking 5mg every 6-8 hrs.Has lost 4 lbs since last visit. Dysuria 44548578 R30.0 Obtain UALow threshold to treat [id number] MD Jeremiah Hayes (CHECK WEIGHER) [address] [place] [address] [id number] 0 08/26/2024 09:29:08 09/03/2024 15:45:26 Routine care 777436544 Z34.01 OB plan: 23 y/o ; CHET 03/05/2025 based on LMP supported by 9 week US presenting at 12w5d for routine OB visit. Problem List:Obesi tyNausea/V omiting - on reglanRh negativeAn tibody positive (too weak to titer) Plan:Antic ipatory guidance givenConti nue PNVB6/Unis om and Reglan for n/vStart ASA at 12 weeks (1st and obesity)Co nfirmed positive Anti-D antibody - MFM referral for comanageme ntFollow up in 4 weeks Blood grou p O Rh(D) negative 417927484 Z67.41 O negative and antibody positiveAn ti-D positiveHx of 1st trimester miscarriag e in 2022 at 4 weeks and Did receive Rhogam approx 4 weeks agoConfirm ed antibody positiveMF M referral sent for comanageme nt Maternal o besity complicating , childbirth and the puerperium, antepartum 0944197362 07 O99.211 Assessment : Obesity based on pre-pregna ncy BMI >30 Pre weight: 206 Pre-pregn theresa BMI: 36.6 Plan: Recommend ed total weight gain of 11-20 lbs. Consider referral to nutrition for dietary counseling , encouraged 30 mins daily physical activity Consider Early 1hr GTT at 16-22 wks Growth ultrasound at 28 and 36 wks if BMI >35 or unable to palpate fundal height BMI 35 or greater monitoring weekly starting at 37 wks Nausea and vomiting in 0289815253 O21.9 Weight stableCont inue B6/UnisomA void a full stomach with frequent small meals q1-2h. Minimize spicy or fatty foods. Instead eat bland/dry foods. High protein snacks/spring crater ckers in morning before getting out of bed.Can also use Adilene 250 mg g6hDdtmq rx for reglan in the ER and that has been helping a lotTaking 5mg every 6-8 hrs. [id number] MD Jeremiah AHUJA (CHECK WEIGHER) [address] [place] [address] [phone] 09/23/2024 10:16:32 10/03/2024 15:09:43 Routine care 591244909 Z34.01 Shahnaz is a 23 y/o presenting @ 17.2 dated by CHET supported by 8 week ultrasound here for routine OB exam. 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 She reports continued N/V, headache, and dysuria. Feeling slight movement. Due date adjusted to 03/01/25 per [facility]. - anticipato ry guidance given- continue PNV and ASA- continue B6/Unisom and Reglan for n/v, refill received by pharmacy just prior to appointmen t- continue Tylenol for headache, trial Benadryl for refractory symptoms- UA and Nuswab for dysuria- recheck antibody screen per [facility] recs- anatomy scan- follow-up in 4 weeks Blood grou p O Rh(D) negative 962052756 Z67.41 O negative and Anti-D positive, too weak to titer.Hx of 1st trimester miscarriag e in 2022 at 4 weeks and did receive Rhogam approx 4 weeks prior to initial labs. Antibodies may be due to Rhogam. - co-managin g with MFM- recheck antibodies at 19 weeks per [facility] Maternal o besity complicating , childbirth and the puerperium, antepartum 9391022753 07 O99.211 Obesity based on pre-pregna ncy BMI >30Pre weight: 206Pre-pre gnancy BMI: 36.6 - Recommende d total weight gain of 11-20 lbs.- Consider referral to nutrition for dietary counseling , encouraged 30 mins daily physical activity- Consider Early 1hr GTT at 16-22 wks- Growth ultrasound at 28 and 36 wks if BMI >35 or unable to palpate fundal height- BMI 35 or greater monitoring weekly starting at 37 wks Nausea and vomiting in 8274921773 O21.9 2 lb weight loss since last appointmen t. Patient reports she is able to eat and drink most of the time.Radha nue B6/UnisomA void a full stomach with frequent small meals q1-2h. Minimize spicy or fatty foods. Instead eat bland/dry foods. High protein snacks/spring crater ckers in morning before getting out of bed.Can also use Adilene 250 mg m5lBptxtwz d with Reglan, refill already received by pharmacy this morning. 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 Antibodies may be due to Rhogam. - co-managin g with MFM- recheck antibodies at 19 weeks per MFM Dysuria 46194356 R30.0 Dipstick showing trace LE. Will send confirmato ry UA and Nuswab. Patient self-swabb ed. Headache 36370485 R51.9 Constant throughout , no associated dizziness, LOC, or change in vision. Blood pressure WNL. Improved with Tylenol. Likely tension type in nature. - continue Tylenol- try Benadryl for refractory symptoms- maintain adequate oral hydration [id number] LÓPEZ LOOMIS PharmD [place] [address] [facility] [address] [place] [address] [place] [address] [phone] 10/22/2024 16:29:05 10/25/2024 03:48:22 56501820 Z33.1 KD is managing her , nausea, vomiting, and hypertensi on. She also experience s daily headaches. Her blood pressure is elevated, indicating a need for closer monitoring and possible medication adjustment .Plan:Cont inue her regimen of Aspirin 81, vitamin tablets, Reglan, Magnesium oxide, Unisom, and Zyrtec.She has been educated about her hypertensi on and headaches. Vaccines, including flu and COVID, have been recommende d for her next checkup.Fo llow up next week to assess headache control [id number] MD Jeremiah MARTE (CHECK WEIGHER) [address] [place] [address] 10/28/2024 10:04:18 11/20/2024 15:43:46 Routine care 993061323 Z34.92 Shahnaz is a 23 y/o presenting @ 22.2 dated by CHET supported by 8 week ultrasound here for routine OB exam.Preg complicate d by:Rh negative with anti-D isoimmuniz ation, obesity, headache, and nausea/vom iting.Due date adjusted to 03/01/25 per [facility]. - anticipato ry guidance given - continue PNV and ASA - continue B6/Unisom and Reglan for n/v - continue Tylenol for headache, trial Benadryl for refractory symptoms - recheck antibody screen per [facility] recs - Repeat anatomy scan needed - follow-up in 4 weeks Headache 01039911 R51.9 Constant throughout , no associated dizziness, LOC, or change in vision. Blood pressure WNL. Improved with Tylenol.Co nt Tylenol as needed Dysuria 79331098 R30.0 Resolved Blood grou p O Rh(D) negative 637596405 Z67.41 O negative and Anti-D positive, too weak to titer. Anti-D isoimmunization affecting 045128993 O36.0199 O negative and Anti-D positive, too weak to titer.Hx of 1st trimester miscarriag e in 2022 at 4 weeks and did receive Rhogam approx 4 weeks prior to initial labs. Antibodies may be due to Rhogam. Nausea and vomiting in 2778359914 O21.9 Continue B6/Unisom Health Concerns Section Related Observation LastModified by Organization Detai ls LastModified Time None Recorded Concern Status LastModified by Organization Details LastModified Time None Recorded Advance Directives Directive N: Payers Encounter Date Sequence Insurance Name Policy Number Policy Ashley Covered Member ID Ashley Member ID Guarantor Name 10/28/2024 1 [place] [id number] Shahnaz [id number] Margo Alina Notes Date Note Type Note Provider Name and Address Organization Details Recorded Time 10/28/2024 text/html Shahnaz is a 23 y /o presenting @ 22.2 dated by CHET supported by 8 week ultrasound here for routine OB exam. Initial US performed first trimester.Preg complicated by 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 Patient reports doing well overall but experienced more headaches compared to when she was . But unchanged. She denies vision changes, dizziness, chest pain, or leg swellings. She reports improvement in nausea and vomiting, which is not happening daily but at times. She believes the medication is helping. She reports feeling movement at times. She denies vaginal bleeding, vaginal discharge, loss of fluid, or contractions. She has not had a visit to ED or Triage since last appointment. She has established with [facility], who adjusted her CHET. OB plan: 23 y/o ; CHET 03/01/25 based on LMP supported by dating USPre- Weight: 206 lbs, BMI: elevated Pre-Eclampsia Risk: highPregnancy Risk Level: moderateContinuity Resident:Uziel Problem List:- Obesity- Nausea/Vomiting- Headache- Rh negative- Antibody positive Anticipate [facility] delivery INITIAL LABS Date: Obtained 07/15/2024lood Type: {{A B AB O*}} Rh Type: {{positive neg*}} Antibody Screen: {{pos* neg}}CBC: Hgb {{ 12.2#}} Hct {{ 38.2#}} WBC {{ 9.0#}} Plts {{ 310#}}VDRL/RPR: {{non-reactive* reactiv e}} Hep B: {{negative* positive}} HepC: {{reactive non-reactive *}} HIV: {{reactive Non-reactive *}}Vaginal Cultures: GC:{{pos neg*}}; Chlamydia:{{pos neg*}}; Trich: {{pos neg*}}Pap: {{UTD* Due, recommend PP pending}}Rubella: {{immune* non-Immune}} Varicella: {{immune* non-Immune}}C F:{{pos neg*}} SS: consistent with {{normal variant* sickle cell trait sickle cell anemia other hemoglobinapathy}}Urine Dip {{ trace leuks, 1+ protein, moderate blood#}} Culture: {{normal* abnormal}} UDS:{{not indicated* pos neg}}Seq uential/QUAD/[id number] :{{pos neg*}}; consistent with {{male female* unknown} } Dating US: LMP: {{ 05/24/2024#}} [place] {{ 9.3#}} CHET: {{ 02/28/2025#}} Patient is {{sure* unsure}} of dating.DUS: Date {{ 07/29/2024#}} AUA: {{ 8.5#}} CHET: {{ 03/05/2025#}} Discrepancy {{<5 days* <7 days >7days >10days >14 days >21days}}CHET: {{ 03/01/2024#}}Based on {{LMP supported by US* US}} Anatomy Scan: {{concordant with dates; unremarkable discordant with dates}} 26 weeks: Date {{}}GTT: {{Pass Fail}}; 3HR GTT {{not warranted pass fail}}CB C: Hgb {{}} Hct {{}} WBC {{}} Plts {{}}HIV:{{reactive non- reactive}} RPR {{reactive non-reactive }}Tdap:{{given declined }} COVID: {{given declined UTD}} Flu {{given declined not indicated}} RSV {{given declined}}Rhoga m: {{unwarranted given}} Date: 36 weeks:Date: {{}}Vaginal Cultures: GC:{{pos neg}}; Chlamydia:{{pos neg}};T rich: {{pos neg}}GBS {{postive negative}}[place]ner ited US:{{cephalic breech tr ansverse}} Situational Awareness:Support Person/Partner/Other Parent(s): Vicentenguyen Lucas (DAY CARE AIDE)Siblings: {{ none#}}Possible Baby Name(s):Willing to participate in group visits: {{yes* no}}Home visits ok: {{yes* no}}Established Dentist: {{yes no*}} Dental Visit in the last year: {{yes no*}}Regular Exercise Routine: {{yes no*}}Taking vitamin prior to : {{yes* no}}Open to vaccination: Tdap: {{yes* no}} COVID: {{yes* no}} Flu: {{yes* no not indicated}} RSV: {{yes* no}}[place]: {{postive negative*}}PH Q9: {{postive negative*}} GAD7: {{positive negative*}}A JEREMY: {{1 2* 3 4 5+}}Resilien ce: {{high* low}}Trauma/PTS D screen {{positive negative*}}S BAY:Planning to breastfeed: {{yes* no}} Circumcision {{yes no undecided*}} Epidural {{yes no undecided*}} Post- contraception {{OCP Depo IUD Nexplano n tubal none*}} BRI SCHMID MD Attn: Accounting,[address] [place], [address], [facility] 11/18/2024 09:49:18 OBGyn Episode Ob Episode Information Episode Created Date Number of Fetuses Patient Bloodtype Patient rh Status Prepregnancy Weight lbs Domestic Partner Domestic Partner Phone Father 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 Status 07/15/20 24 1 O Negative OPEN Fetus Data First Name Last Name Admitted to NICU Weight (g) Sex Living Outcome Pediatric Complications Fetus ID Race Codes Race Delivery Type [id number] Problems Problem Notes Continuity resident: Navarro Centeno given: Due at 27+ weeksMaternal RSV vaccine: N/A - out of season Problem Name Start Date End Date Resolution Snomed Code Not e Routine care 09/25/2024 [id number] 003 Headache 09/25/2024 89483232 Tylenol, trial Benadryl Nausea and vomiting in 07/18/2024 [id number] B6/unisom, regl an Anti-D isoimmunization affecting 08/05/2024 [id number] co-manag ing with MFM, recheck antibody titers Maternal obesity complicating , childbirth and the puerperium, antepartum 07/15/2024 [id number] Blood group O Rh(D) negative 07/29/2024 [id number] co-managing wit h MFM, recheck antibody titers Dysuria 08/14/2024 [id number] Check UA and Nuswab Chet Calculation Initial Chet Date Initial Exam Date Initial Exam Provider Initial Ultrasound Date Last Menstrual Period Date Ultra Sound Weeks Gestation 03/01/2025 07/15/2024 [email or web address] 07/29/2024 05/25/2024 8 Eighteen To Twenty Week Chet Update Ultra Sound Date Fundal Height At Umbil Quickening Date Ultra Sound Latest Weeks Gestation Final Chet Confirmed By Final Chet Confirmed Date Final Chet Date Ultra Sound Latest Days Gestation 0 0 Pre- Flowsheet Flowsheet Date 07/15/2024 Huggins Score Blood Edema Fundus Height Fundus Units Glucose Ketones Leukocytes Nitrite Labor Signs Protein Cervic Dilation Cervic Effacement Cervic Station 2+ none negative trace Type Weight in lbs Pre/Post Dialysis Refused With clothes 205.012175908892 BP Diastolic BP Location Tested BP Systolic BP Type 64 L arm 118 sitting Fetus Heart Rate Present Fetus Movement Comments OB plan: 23 y/o ; CHET 02/28/2025 based on LMP presenting at 7w3d for initial OB visit.Problem List: ObesityNausea/VomitingPlan:Anticipatory guidance givenHCG increasing appropriatelyContinue PNVB6/Unisom rx given for n/vStart ASA at 12 weeks (1st and obesity)Initial OB labs obtainedFollow up in 2 weeks for dating US Flowsheet Date 07/29/2024 Huggins Score Blood Edema Fundus Height Fundus Units Glucose Ketones Leukocytes Nitrite Labor Signs Protein Cervic Dilation Cervic Effacement Cervic Station neg none none negative neg Type Weight in lbs Pre/Post Dialysis Refused With clothes 204.440990646354 BP Diastolic BP Location Tested BP Systolic BP Type 72 R arm 118 sitting Fetus Heart Rate Present A 167 Present Fetus Movement Comments OB plan: 23 y/o ; CHET 02/28/2025 based on LMP supposrted by 9 week US presenting at 9w3d for routine OB visit.Problem List: ObesityNausea/VomitingRh negativeAntibody positivePlan:Anticipatory guidance givenContinue PNVB6/Unisom for n/vStart ASA at 12 weeks (1st and obesity)Initial OB labs reviewedWill repeat antibody testing to confirm positive Anti-D antibodyFollow up in 2 weeks and obtain [id number] Flowsheet Date 08/12/2024 Huggins Score Blood Edema Fundus Height Fundus Units Glucose Ketones Leukocytes Nitrite Labor Signs Protein Cervic Dilation Cervic Effacement Cervic Station trace none none negative neg Type Weight in lbs Pre/Post Dialysis Refused With clothes [id number] BP Diastolic BP Location Tested BP Systolic BP Type 74 R arm 118 sitting Fetus Heart Rate Present Fetus Movement Comments OB plan: 23 y/o ; CHET 03/05/2025 based on LMP supported by 9 week US presenting at 10w5d for routine OB visit.Problem List: ObesityNausea/Vomiting - on reglanRh negativeAntibody positive (too weak to titer)Plan:Anticipatory guidance givenContinue PNVSend Full UA, low threshold for treating for UTIB6/Unisom and Reglan for n/vStart ASA at 12 weeks (1st and obesity)Confirmed positive Anti-D antibody - MFM referral for comanagementobtain [id number] Flowsheet Date 08/26/2024 Huggins Score Blood Edema Fundus Height Fundus Units Glucose Ketones Leukocytes Nitrite Labor Signs Protein Cervic Dilation Cervic Effacement Cervic Station neg none none negative none neg Type Weight in lbs Pre/Post Dialysis Refused With clothes 200.743234630515 BP Diastolic BP Location Tested BP Systolic BP Type 76 R arm 122 sitting Fetus Heart Rate Present A 150 Fetus Movement Comments OB plan: 23 y/o ; CHET 03/05/2025 based on LMP supported by 9 week US presenting at 12w5d for routine OB visit.Problem List: ObesityNausea/Vomiting - on reglanRh negativeAntibody positive (too weak to titer)Plan:Anticipatory guidance givenContinue PNVB6/Unisom and Reglan for n/vStart ASA at 12 weeks (1st and obesity)Confirmed positive Anti-D antibody - MFM referral for comanagementFollow up in 4 weeks Flowsheet Date 09/23/2024 Huggins Score Blood Edema Fundus Height Fundus Units Glucose Ketones Leukocytes Nitrite Labor Signs Protein Cervic Dilation Cervic Effacement Cervic Station neg none none negative Other (see comments ) neg Type Weight in lbs Pre/Post Dialysis Refused With clothes 198.007550524476 BP Diastolic BP Location Tested BP Systolic BP Type 66 R arm 118 sitting Fetus Heart Rate Present A 145 Fetus Movement A Yes Comments Shahnaz is a 23 y/o p resenting @ 17.2 dated by CHET supported by 8 week ultrasound here for routine OB exam. 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 She reports continued N/V, headache, and dysuria. Feeling slight movement. Due date adjusted to 03/01/25 per MFM. - anticipatory guidance given- continue PNV and ASA- continue B6/Unisom and Reglan for n/v, refill received by pharmacy just prior to appointment- continue Tylenol for headache, trial Benadryl for refractory symptoms- UA and Nuswab for dysuria- recheck antibody screen per MFM recs- anatomy scan- follow-up in 4 weeks Flowsheet Date 10/22/2024 Huggins Score Blood Edema Fundus Height Fundus Units Glucose Ketones Leukocytes Nitrite Labor Signs Protein Cervic Dilation Cervic Effacement Cervic Station Type Weight in lbs Pre/Post Dialysis Refused BP Diastolic BP Location Tested BP Systolic BP Type Fetus Heart Rate Present Fetus Movement Comments Flowsheet Date 10/28/2024 Huggins Score Blood Edema Fundus Height Fundus Units Glucose Ketones Leukocytes Nitrite Labor Signs Protein Cervic Dilation Cervic Effacement Cervic Station neg none 22 cm none negative neg Type Weight in lbs Pre/Post Dialysis Refused With clothes 205.726024227076 BP Diastolic BP Location Tested BP Systolic BP Type 68 R arm 118 sitting Fetus Heart Rate Present A 152 Present Fetus Movement A Yes Comments Shahnaz is a 23 y/o p resenting @ 22.2 dated by CHET supported by 8 week ultrasound here for routine OB exam.Preg complicated by: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 Due date adjusted to 03/01/25 per MFM. Plan:- anticipatory guidance given- continue PNV and ASA- continue B6/Unisom and Reglan for n/v - continue Tylenol for headache, trial Benadryl for refractory symptoms- recheck antibody screen per M recs- Repeat anatomy scan needed- follow-up in 4 weeks Flowsheet Date 10/29/2024 Huggins Score Blood Edema Fundus Height Fundus Units Glucose Ketones Leukocytes Nitrite Labor Signs Protein Cervic Dilation Cervic Effacement Cervic Station Type Weight in lbs Pre/Post Dialysis Refused BP Diastolic BP Location Tested BP Systolic BP Type Fetus Heart Rate Present Fetus Movement Comments Flowsheet Date 11/05/2024 Huggins Score Blood Edema Fundus Height Fundus Units Glucose Ketones Leukocytes Nitrite Labor Signs Protein Cervic Dilation Cervic Effacement Cervic Station Type Weight in lbs Pre/Post Dialysis Refused BP Diastolic BP Location Tested BP Systolic BP Type Fetus Heart Rate Present Fetus Movement Comments Flowsheet Date 11/11/2024 Huggins Score Blood Edema Fundus Height Fundus Units Glucose Ketones Leukocytes Nitrite Labor Signs Protein Cervic Dilation Cervic Effacement Cervic Station Type Weight in lbs Pre/Post Dialysis Refused BP Diastolic BP Location Tested BP Systolic BP Type Fetus Heart Rate Present Fetus Movement Comments Flowsheet Date 11/25/2024 Huggins Score Blood Edema Fundus Height Fundus Units Glucose Ketones Leukocytes Nitrite Labor Signs Protein Cervic Dilation Cervic Effacement Cervic Station neg none 26 cm none negative Other (see comments ) neg Type Weight in lbs Pre/Post Dialysis Refused With clothes 208.309763645140 BP Diastolic BP Location Tested BP Systolic BP Type 66 R arm 118 sitting Fetus Heart Rate Present A 157 Fetus Movement A Yes Comments Shahnaz is a 23 y/o p resenting @ 22.2 dated by CHET supported by 8 week ultrasound here for routine OB exam.Preg complicated by: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 Due date adjusted to 03/01/25 per M. - anticipatory guidance given- continue PNV and ASA- continue Reglan for n/v - Trial Fiorset sparingly for headache - plan on doing 1 hour GTT at next visit- plan on getting labs and Tdap next visit- follow-up in 2 weeks Menstrual History Last Menstrual Date Menses Monthly On Bcp Conception Prior Menses Frequency Hcg Plus Date Menarche Onset Age 0805/25/2024 Delivery Information Delivery Date Delivery Type Labor Anesthesia Weeks Gestation Incision Type Labor Labor Length Hrs Delivered By Post Complications Tubal Sterilization Discharge Date Comments Discharge Information Feeding Method Contraceptive Method Maternal HG B and HCT Levels Ob Episode Information Episode Created Date Number of Fetuses Patient Bloodtype Patient rh Status Prepregnancy Weight lbs Domestic Partner Domestic Partner Phone Father 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 Status 07/15/20 24 1 DELETED Fetus Data First Name Last Name Admitted to NICU Weight (g) Sex Living Outcome Pediatric Complications Fetus ID Race Codes Race Delivery Type [id number] Chet Calculation Initial Chet Date Initial Exam Date Initial Exam Provider Initial Ultrasound Date Last Menstrual Period Date Ultra Sound Weeks Gestation 07/15/2024 0 Eighteen To Twenty Week Chet Update Ultra Sound Date Fundal Height At Umbil Quickening Date Ultra Sound Latest Weeks Gestation Final Chet Confirmed By Final Chet Confirmed Date Final Chet Date Ultra Sound Latest Days Gestation 0 0 Menstrual History Last Menstrual Date Menses Monthly On Bcp Conception Prior Menses Frequency Hcg Plus Date Menarche Onset Age Delivery Information Delivery Date Delivery Type Labor Anesthesia Weeks Gestation Incision Type Labor Labor Length Hrs Delivered By Post Complications Tubal Sterilization Discharge Date Comments Discharge Information Feeding Method Contraceptive Method Maternal HG B and HCT Levels Ob Episode Information Episode Created Date Number of Fetuses Patient Bloodtype Patient rh Status Prepregnancy Weight lbs Domestic Partner Domestic Partner Phone Father 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 Status 06/28/20 23 1 CLOSED Fetus Data First Name Last Name Admitted to NICU Weight (g) Sex Living Outcome Pediatric Complications Fetus ID Race Codes Race Delivery Type , Spont[place] ous [id number] Chet Calculation Initial Chet Date Initial Exam Date Initial Exam Provider Initial Ultrasound Date Last Menstrual Period Date Ultra Sound Weeks Gestation 0 Eighteen To Twenty Week Chet Update Ultra Sound Date Fundal Height At Umbil Quickening Date Ultra Sound Latest Weeks Gestation Final Chet Confirmed By Final Chet Confirmed Date Final Chet Date Ultra Sound Latest Days Gestation 0 0 Menstrual History Last Menstrual Date Menses Monthly On Bcp Conception Prior Menses Frequency Hcg Plus Date Menarche Onset Age Delivery Information Delivery Date Delivery Type Labor Anesthesia Weeks Gestation Incision Type Labor Labor Length Hrs Delivered By Post Complications Tubal Sterilization Discharge Date Comments 3 6 Discharge Information Feeding Method Contraceptive Method Maternal HG B and HCT Levels
[2024-11-29 20:31] LABS: Amphetamine Screen Urine Negative (Negative); Barbiturate Screen Urine Negative (Negative); Benzodiazepines Screen Urine Negative (Negative); Cannabinoid Screen Urine Negative (Negative); Cocaine Screen Urine Negative (Negative); Methadone Screen Urine Negative (Negative); Opiate Screen Urine Negative (Negative); Phencyclidine Screen Urine Negative (Negative)
[2024-11-29 20:53] LABS: Influenza A QL RT-PCR Negative (Negative); Influenza B QL RT-PCR Negative (Negative); SARS-CoV-2 RNA PCR Positive (Negative)
--- NOTE | 2024-11-29 21:02 | PC.NURSE ---
Pt discharged home undelivered in stable condition per order from Dr. Meyer. Discussed labor precautions, covid-pos, isolate, take Tylenol PRN and baby aspirin daily. Pt is to follow up with primary OB. All questions and concerned answered pt stated understanding. Pt ambulated out of department with all belongings, s.o @ pt side.
== END 2024-11-29 21:05 | disposition home or self-care (01) ==
LOC: ANHOBOP 19:09 → ANHOBPP 19:11
PROVIDERS: PCP Internal Medicine; Visit Provider Student in an Organized Health Care Education/Training Program
DX: O13.9 Gestational [pregnancy-induced] hypertension without significant proteinuria, unspecified trimester (principal); Z3A.00 Weeks of gestation of pregnancy not specified
CPT/HCPCS: 80307; 87636; 99199